=== PATIENT | female | born 2000 | race Caucasian/White ===

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

== ENCOUNTER 2018-12-11 07:22 | Day surgery (SDC) | payer BC ==
[~2018-12-11 07:22] MED LIST: BUPIVACAINE HCL/PF 0.5% (5 MG/ML) 30 ML VIAL IJ ONE; cefOXitin SODIUM 1 GM VIAL (RESTRICTED TO ID) IVPB ONE
[2018-12-11 07:37] VITALS: BMI 24.7
[2018-12-11] MEDS ORDERED: SODIUM CHLORIDE 1,000 ML IV STA (08:01)
[2018-12-11] MEDS ORDERED: ONDANSETRON 4 MG/2 ML VIAL IVPUSH ONE (08:01)
[2018-12-11] MEDS ORDERED: FAMOTIDINE 20 MG/50 ML IVPB 20 MG/50 ML MG IVPB ONE ×2 (08:01→08:23)
[2018-12-11] MEDS ORDERED: ACETAMINOPHEN 1000 MG/100 ML VIAL (NON FORMULARY) IVPB ONE ×2 (08:01→22:13)
--- NOTE | 2018-12-11 08:02 | PDOC ---
History of Present Illness - General Chief Complaint: Pain, Acute Stated Complaint: BACK PAIN Time Seen by Provider: 12/11/18 07:55 History Source: Patient Exam Limitations: No Limitations Past History - Travel Traveled outside of the country in the last 30 days: No Close contact w/someone who was outside of country & ill: No - Past Medical History Allergies/Adverse Reactions: Allergies Allergy/AdvReac Type Severity Reaction Status Date / Time No Known Allergies Allergy Verified 12/11/18 07:28 Home Medications: Ambulatory Orders Loratadine [Claritin] 10 mg PO DAILY #30 tablet 07/26/16 predniSONE [Deltasone -] 20 mg PO DAILY #5 tablet 07/26/16 Asthma: Yes (no intubations) COPD: No - Immunization History TDAP Vaccination: Yes Immunization Up to Date: Yes - Suicide/Smoking/Psychosocial Hx Smoking Status: No Smoking History: Current every day smoker Number of Cigarettes Smoked Daily: 10 Information on smoking cessation initiated: No Drug/Substance Use Hx: Yes (MARIJUANA) Substance Use Type: None Review of Systems - Review of Systems Able to Perform ROS?: Yes Comments:: 12/11/18 08:14 CONSTITUTIONAL: Absent: fever, chills, diaphoresis, generalized weakness, malaise, loss of appetite HEENT: Absent: rhinorrhea, nasal congestion, throat pain, throat swelling, difficulty swallowing, mouth swelling, ear pain, eye pain, visual Changes CARDIOVASCULAR: Absent: chest pain, loss of consciousness, palpitations, irregular heart rate, peripheral edema RESPIRATORY: Absent: cough, shortness of breath, dyspnea with exertion, orthopnea, wheezing, stridor, hemoptysis GASTROINTESTINAL: Present: abdominal pain, nausea, vomiting Absent: abdominal distension, diarrhea , constipation, melena, hematochezia GENITOURINARY: Present: dysuria, frequency, R flank pain Absent: urgency, hesitancy, hematuria , genital pain MUSCULOSKELETAL: Absent: myalgia, arthralgia, joint swelling SKIN: Absent: rash, itching, pallor NEUROLOGIC: Absent: headache, focal weakness or paresthesias, dizziness, unsteady gait, seizure, mental status changes, bladder or bowel incontinence PSYCHIATRIC: Absent: anxiety, depression, suicidal or homicidal ideation, hallucinations. Is the patient limited Azeri proficient: No *Physical Exam - Vital Signs Last Vital Signs Temp Pulse Resp BP Pulse Ox 97.5 F L 72 17 139/94 99 12/11/18 07:29 12/11/18 07:29 12/11/18 07:29 12/11/18 07:29 12/11/18 07:29 - Physical Exam Comments: 12/11/18 08:15 GENERAL: Well developed, well nourished. Awake and alert. Mild distress. HEENT: Normocephalic, atraumatic. PERRLA, EOMI. No conjunctival pallor. Sclera are non- icteric. Moist mucous membranes. Oropharynx is clear. NECK: Supple. Full ROM. No JVD. Carotid pulses 2+ and symmetric, without bruits. No thyromegaly. No lymphadenopathy. CARDIOVASCULAR: Regular rate and rhythm. No murmurs, rubs, or gallops. Distal pulses are 2+ and symmetric. PULMONARY: No evidence of respiratory distress. Lungs clear to auscultation bilaterally. No wheezing, rales or rhonchi. ABDOMINAL: TTP suprapubic area. Soft. Non-distended. No rebound or guarding. No organomegaly. Normoactive bowel sounds. MUSCULOSKELETAL Normal range of motion at all joints. No bony deformities or tenderness. (+) R CVA tenderness. EXTREMITIES: No cyanosis. No clubbing. No edema. No calf tenderness. SKIN: Warm and dry. Normal capillary refill. No rashes. No jaundice. NEUROLOGICAL: Alert, awake, appropriate. Cranial nerves 2-12 intact. No deficits to light touch and temperature in face, upper extremities and lower extremities. No motor deficits in the in face, upper extremities and lower extremities. Normoreflexic in the upper and lower extremities. Normal speech. Toes are down- going bilaterally. Gait is normal without ataxia. PSYCHIATRIC: Cooperative. Good eye contact. Appropriate mood and affect. ED Treatment Course - LABORATORY CBC & Chemistry Diagram: 12/11/18 08:20 12/11/18 08:20 Medical Decision Making - Medical Decision Making 12/11/18 08:19 The patient is a 18 y/o F with no PMH who presents to the ER for one day of flank pain and one week of dysuria. The patient states that she also has associated R sided back pain. She states she has been vomiting d/t the pain and noted streaks of blood in her vomit this morning. Denies fevers, chills, sore throat, chest pain, difficulty breathing, diarrhea, constipation. LMP 11/29/18 PShx: None SHx: Smokes 5 cigarettes a day Social drinker Marijuana use A/P: Flank pain with dysuria On exam (+) R flank pain and suprapubic tenderness DDx IBINLT: Pyelo, UTI, , Renal stone, viral illness, less likely appendicitis Basic labs, urine ordered IVF, Meds CT renal re-evaluate 12/11/18 08:56 (+) UTI, Will give one dose of Ceftriaxone now. No allergies per the patient WBC 14.4 Pain has resolved after ofirmev 12/11/18 11:21 CT noted for possible early appendicitis, Stones in the L kidney Surgery consulted; paged Dr. Fields Anticipate admission 12/11/18 12:53 Dr. Fields agrees with early appy. Will admit under Dr. Fields to Satallite Cefoxtine and maintenance fluids ordered Pt is a agreement with plan *DC/Admit/Observation/Transfer Diagnosis at time of Disposition: Appendicitis Qualifiers: Appendicitis type: acute appendicitis Acute appendicitis type: with localized peritonitis Appendicitis gangrene presence: without gangrene Appendicitis perforation presence: without perforation Appendicitis abscess presence: without abscess Qualified Code(s): K35.30 - Acute appendicitis with localized peritonitis, without perforation or gangrene - Discharge Dispostion Condition at time of disposition: Stable Decision to Admit order: Yes - Referrals - Patient Instructions - Post Discharge Activity
[2018-12-11] MEDS ORDERED: ACETAMINOPHEN INJECTION 100 ML IVPB ONE ×2 (08:22→22:15)
[2018-12-11] MEDS ORDERED: ONDANSETRON 4 MG/2 ML VIAL ONE ×2 (08:22→22:00)
[2018-12-11 08:33] LABS: HCG,QUALITATIVE URINE Negative; HYALINE CASTS 8 /lpf (0-8); PH,URINE 7.5 (5.0-8.0); URINE APPEARANCE CLOUDY; URINE BACTERIA 414.4 /hpf (NEGATIVE); URINE BILIRUBIN NEGATIVE (NEGATIVE); URINE COLOR YELLOW; URINE GLUCOSE (UA) NEGATIVE (NEGATIVE); URINE KETONE NEGATIVE (NEGATIVE); URINE LEUK ESTERASE 2+ (NEGATIVE); URINE NITRITE NEGATIVE (NEGATIVE); URINE PROTEIN 1+ (NEGATIVE); URINE RBC 14 /hpf (0-4); URINE UROBILINOGEN 0.2 mg/dL (0.2-1.0); URINE WBC 70 /hpf (0-5)
[2018-12-11] MEDS ORDERED: CEFTRIAXONE 1,000 MG in DEXTROSE 5%-WATER - 50 ML IVPB ONE (08:51)
[2018-12-11 09:01] LABS: ALBUMIN 4.1 g/dl (3.4-5.0); BILIRUBIN,TOTAL 0.7 mg/dL (0.2-1); BLOOD UREA NITROGEN 8.2 mg/dL (7-18); CALCIUM 9.6 mg/dL (8.5-10.1); CREATININE 0.7 mg/dL (0.55-1.3); POTASSIUM 4.1 mmol/L (3.5-5.1); TOT PROT 7.7 g/dl (6.4-8.2)
[2018-12-11 09:08] LABS: PROTHROMBIN TIME (PATIENT) 11.8 SEC (9.7-13.0)
[2018-12-11] MEDS ORDERED: CEFTRIAXONE 1 GM/50 ML BAG ONE (09:14)
[2018-12-11 09:37] LABS: HEMATOCRIT 43.1 % (32.4-45.2); HEMOGLOBIN 14.5 GM/dL (10.7-15.3); MCH 29.4 pg (25.7-33.7); MCHC 33.6 g/dl (32.0-36.0); MEAN CELL VOLUME 87.5 fl (80-96); MEAN PLT VOLUME 10.4 fl (7.5-11.1); RBC 4.92 M/mm3 (3.60-5.2); RDW 13.1 % (11.6-15.6); WHITE BLOOD COUNT 14.6 K/mm3 (4.0-10.0)
--- NOTE | 2018-12-11 10:01 | PDOC ---
*Physical Exam - Vital Signs Last Vital Signs Temp Pulse Resp BP Pulse Ox 97.5 F L 72 17 139/94 99 12/11/18 07:29 12/11/18 07:29 12/11/18 07:29 12/11/18 07:29 12/11/18 07:29 ED Treatment Course - LABORATORY CBC & Chemistry Diagram: 12/11/18 08:20 12/11/18 08:20 - ADDITIONAL ORDERS Additional order review: Laboratory Results 12/11/18 12/11/18 12/11/18 08:20 08:20 08:07 PT with INR 11.80 INR 1.00 Sodium 138 Potassium 4.1 Chloride 103 Carbon Dioxide 25 Anion Gap 10 BUN 8.2 Creatinine 0.7 Est GFR (CKD-EPI)AfAm 144.56 Est GFR (CKD-EPI)NonAf 124.72 Random Glucose 108 H Calcium 9.6 Total Bilirubin 0.7 AST 21 ALT 33 Alkaline Phosphatase 87 Total Protein 7.7 Albumin 4.1 Urine Color Yellow Urine Appearance Cloudy Urine pH 7.5 Ur Specific [place] 1.017 Urine Protein 1+ H Urine Glucose (UA) Negative Urine Ketones Negative Urine Blood Trace Urine Nitrite Negative Urine Bilirubin Negative Urine Urobilinogen 0.2 Ur Leukocyte Esterase 2+ H Urine WBC (Auto) 70 Urine RBC (Auto) 14 Urine Casts (Auto) 8 U Epithel Cells (Auto) 1.0 Urine Bacteria (Auto) 414.4 Urine HCG, Qual Negative 12/11/18 08:20 RBC 4.92 MCV 87.5 MCHC 33.6 RDW 13.1 Neutrophils % No Result Required. Lymphocytes % No Result Required. - Medications Given in the ED: ED Medications Discontinued Medications Generic Name Dose Route Start Last Admin Trade Name Rcq PRN Reason Stop Dose Admin Acetaminophen 1,000 mg 12/11/18 08:01 12/11/18 08:32 Ofirmev Injection - IVPB 12/11/18 08:02 1,000 mg ONCE ONE Administration Famotidine/Sodium Chloride 20 mg in 50 mls @ 100 mls/hr 12/11/18 08:01 08:56 Pepcid 20 Mg Premixed Ivpb - IVPB 12/11/18 08:30 100 mls/hr ONCE ONE Administration Sodium Chloride 1,000 mls @ 1,000 mls/hr 12/11/18 08:01 12/11/18 08:32 Normal Saline - IV 12/11/18 09:00 1,000 mls/hr ASDIR STA Administration Ceftriaxone Sodium 1,000 mg/ 50 mls @ 100 mls/hr 12/11/18 08:51 12/11/18 09: 25 Dextrose IVPB 12/11/18 09:20 100 mls/hr ONCE ONE Administration Ondansetron HCl 4 mg 12/11/18 08:01 12/11/18 08:33 Zofran Injection IVPUSH 12/11/18 08:02 4 mg ONCE ONE Administration Medical Decision Making - Medical Decision Making 12/11/18 10:00 Ms Escobar is a 18 y/o F with no PMH who presents to the ER right flank pain x 1 week. No fevers or chills 12/11/18 10:01 Laboratory Tests 12/11/18 12/11/18 08:07 08:20 WBC 14.6 H Hgb 14.5 Hct 43.1 Urine Blood Trace Urine Nitrite Negative Ur Leukocyte Esterase 2+ H Urine WBC (Auto) 70 Urine RBC (Auto) 14 Urine Bacteria (Auto) 414.4 UA demonstrates possible UTI, Ceftriaxone given CT concerning for appendicitis Will consult surgery Abx Admit 12/11/18 16:41 *DC/Admit/Observation/Transfer Diagnosis at time of Disposition: Appendicitis - Discharge Dispostion Condition at time of disposition: Stable - Referrals - Patient Instructions - Post Discharge Activity
[2018-12-11 10:55] LABS: ANISOCYTOSIS 1+; MACROCYTOSIS 0; PLATELET ESTIMATE NORMAL
[2018-12-11 11:11] LABS: PLATELET COUNT 351 K/MM3 (134-434)
[2018-12-11] MEDS ORDERED: SODIUM CHLORIDE 1,000 ML IV SCH (11:45)
[2018-12-11] MEDS ORDERED: CEFOXITIN SODIUM 1 GM in DEXTROSE 5%-WATER - 100 ML IVPB ONE (11:49)
--- NOTE | 2018-12-11 14:00 | HP ---
Admitting History and Physical - Primary Care Physician PCP: Shaquille Roman - Admission Chief Complaint: dysuria, lower abd pain, N/V History of Present Illness: 18yo F with h/o asthma (no meds for years), active smoker of cigarettes and MJ, presents with dysuria since Sunday associated with lower abdominal pain and some nausea over the weekend. The pain persisted and got worse this morning, at which time she also had vomiting, including some bloody streaks at the end, and she came to ER. Last po was yesterday, but she wasn't really hungry then. Normal BMs, last yesterday. No F/C, has had UTI in past with sexual activity. LMP 1-2 weeks ago. In ER, wbc is 14, and CT shows small left kidney stone but nothing on right, appendix with appendicolith, some fluid at tip, possible early/tip appendicitis. She is seen and examined in ER holding with father present. Pain is better after IV tylenol, but shaping machine tender. She has gotten IV fluids and antibiotics. History Source: Patient Limitations to Obtaining History: No Limitations - Past Medical History Pulmonary: Yes: Asthma (no meds) Renal/: Yes: UTI (in past, with sexual activity) ...LMP Comment: 1-2 wks ago ...: No - Past Surgical History Past Surgical History: Yes: None - Smoking History Smoking history: Current every day smoker Have you smoked in the past 12 months: Yes Aproximately how many cigarettes per day: 5 - Alcohol/Substance Use Hx Alcohol Use: Yes (social) History of Substance Use: reports: Marijuana (daily) Date of Last Use: 12/10/18 - Social History ADL: Independent Occupation: security Home Medications - Allergies Allergies/Adverse Reactions: Allergies Allergy/AdvReac Type Severity Reaction Status Date / Time No Known Allergies Allergy Verified 12/11/18 07:28 - Home Medications Home Medications: Ambulatory Orders NK [No Known Home Medication] 12/11/18 Family Disease History - Family Disease History Family Disease History: CA: Grandparent (pat GF colon CA), Other: Father (htn) Other Family History: mother's side breast CA but not mother Review of Systems - Review of Systems Constitutional: reports: Loss of Appetite (with hpi). denies: Chills, Fever Eyes: denies: Blurred Vision, Recent Change in Vision HENT: denies: Difficult Swallowing, Throat Pain Neck: denies: Swollen Glands, Tenderness Cardiovascular: denies: Chest Pain, Palpitations Respiratory: denies: Cough, SOB Gastrointestinal: reports: Abdominal Pain (with hpi), Nausea (with hpi), Vomiting (with hpi), Vomiting Blood (streaks this morning, with hpi). denies: Constipation, Diarrhea Genitourinary: reports: Burning, Dysuria Musculoskeletal: reports: Back Pain (with hpi). denies: Joint Pain, Muscle Pain Integumentary: denies: Change in Color, Rash Neurological: denies: Dizziness, Headache, Unsteady Gait Psychiatric: denies: Anxiety, Depression Physical Examination Vital Signs: Vital Signs Temperature 97.5 F L 12/11/18 07:29 Pulse Rate 86 12/11/18 11:30 Respiratory Rate 18 12/11/18 11:30 Blood Pressure 132/72 12/11/18 11:30 O2 Sat by Pulse Oximetry (%) 99 12/11/18 13:48 Constitutional: Yes: Well Nourished, No Distress, Calm Eyes: Yes: Conjunctiva Clear, EOM Intact HENT: Yes: Atraumatic, Normocephalic Neck: Yes: Supple, Trachea Midline Cardiovascular: Yes: Regular Rate and Rhythm Respiratory: Yes: Regular, CTA Bilaterally. No: Wheezes Gastrointestinal: Yes: Soft, Hernia (tiny umbilical defect palpable), Hypoactive Bowel Sounds, Tenderness (RLQ mild, no michelle/guard, mild suprapubic). No: Distention, Tenderness, Epigastrium, Tenderness, Rebound ...Rectal Exam: Yes: Deferred Renal/: Yes: CVA Tenderness - Right (mild). No: CVA Tenderness - Left Musculoskeletal: No: Back Pain (no direct tenderness), Joint Stiffness, Joint Swelling Extremities: No: Cool, Cyanosis Edema: No Peripheral Pulses WNL: Yes Integumentary: Yes: Body Piercing (right eyebrow, tongue), Tattoos. No: Jaundice, Rash Neurological: Yes: Alert, Oriented Psychiatric: Yes: Alert, Oriented Labs: CBC, BMP 12/11/18 08:20 12/11/18 08:20 CMP Sodium 138 mmol/L (136-145) 12/11/18 08:20 Potassium 4.1 mmol/L (3.5-5.1) 12/11/18 08:20 Chloride 103 mmol/L (98-107) 12/11/18 08:20 Carbon Dioxide 25 mmol/L (21-32) 12/11/18 08:20 Anion Gap 10 MMOL/L (8-16) 12/11/18 08:20 BUN 8.2 mg/dL (7-18) 12/11/18 08:20 Creatinine 0.7 mg/dL (0.55-1.3) 12/11/18 08:20 Est GFR (CKD-EPI)AfAm 144.56 12/11/18 08:20 Est GFR (CKD-EPI)NonAf 124.72 12/11/18 08:20 Random Glucose 108 mg/dL (74-106) H 12/11/18 08:20 Calcium 9.6 mg/dL (8.5-10.1) 12/11/18 08:20 Total Bilirubin 0.7 mg/dL (0.2-1) 12/11/18 08:20 AST 21 U/L (15-37) 12/11/18 08:20 ALT 33 U/L (13-61) 12/11/18 08:20 Alkaline Phosphatase 87 U/L (45-117) 12/11/18 08:20 Total Protein 7.7 g/dl (6.4-8.2) 12/11/18 08:20 Albumin 4.1 g/dl (3.4-5.0) 12/11/18 08:20 INR, PTT INR 1.00 (0.83-1.09) 12/11/18 08:20 Urine Test Results Urine Color Yellow 12/11/18 08:07 Urine Appearance Cloudy 12/11/18 08:07 Urine pH 7.5 (5.0-8.0) 12/11/18 08:07 Ur Specific [place] 1.017 (1.010-1.035) 12/11/18 08:07 Urine Protein 1+ (NEGATIVE) H 12/11/18 08:07 Urine Glucose (UA) Negative (NEGATIVE) 12/11/18 08:07 Urine Ketones Negative (NEGATIVE) 12/11/18 08:07 Urine Blood Trace (NEGATIVE) 12/11/18 08:07 Urine Nitrite Negative (NEGATIVE) 12/11/18 08:07 Urine Bilirubin Negative (NEGATIVE) 12/11/18 08:07 Ur Leukocyte Esterase 2+ (NEGATIVE) H 12/11/18 08:07 UA positive Imaging - Results Cat Scan: Report Reviewed, Image Reviewed (images reviewed - appendix with appendicolith, little fluid by tip, no free air or abscess) Problem List - Problems (1) Acute appendicitis with localized peritonitis, without perforation, abscess , or gangrene Assessment/Plan: admit 23H/satellite to surgery NPO/IVF until postop IV antibiotics periop pain meds prn, nonnarcotics first line DVT prophylaxis Discussed with patient risks, benefits and alternatives of laparoscopic possible open appendectomy, including but not limited to bleeding, infection, injury to adjacent structures, intestinal leak or injury, intraabdominal abscess , incisional hernia, need for further procedures; alternatives include antibiotics, delayed or no surgery - risks of this include failure of nonoperative therapy, perforation, sepsis, recurrence. Patient desires to proceed with operation - will take to OR for above. Informed consent signed for same. Code(s): K35.30 - ACUTE APPENDICITIS WITH LOC PERITONITIS, W/O PERF OR GANGR (2) Dysuria Code(s): R30.0 - DYSURIA (3) Suprapubic pain Code(s): R10.2 - PELVIC AND PERINEAL PAIN (4) Cystitis Assessment/Plan: urine cx pending got ceftriaxone in ER, cefoxitin for appendix will complete course of bactrim postop for UTI Code(s): N30.90 - CYSTITIS, UNSPECIFIED WITHOUT HEMATURIA (5) Nausea and vomiting Code(s): R11.2 - NAUSEA WITH VOMITING, UNSPECIFIED Qualifiers: Vomiting type: unspecified Vomiting Intractability: non-intractable Qualified Code(s): R11.2 - Nausea with vomiting, unspecified
[2018-12-11] MEDS ORDERED: LACTATED RINGERS SOLUTION 1,000 ML IV SCH ×3 (14:15→22:30)
[2018-12-11] MEDS ORDERED: BENZOIN TINCTURE SWABSTICK TP ONE ×2 (14:45→21:49)
[2018-12-11] MEDS ORDERED: CEFOXITIN SODIUM 2 GM IVPB ONE (20:14)
[2018-12-11] MEDS ORDERED: PROMETHAZINE HCL 25 MG/1 ML VIAL IVPUSH PRN (20:22)
[2018-12-11] MEDS ORDERED: oxyCODONE HCL 5 MG TABLET PO PRN ×3 (20:22→22:30)
[2018-12-11] MEDS ORDERED: ONDANSETRON 4 MG/2 ML VIAL IVPUSH PRN ×2 (20:22→22:30)
[2018-12-11] MEDS ORDERED: SUCCINYLCHOLINE CHLORIDE 200 MG/10 ML SYRINGE ONE (20:50)
[2018-12-11] MEDS ORDERED: ROCURONIUM BROMIDE 50 MG/5 ML VIAL ONE (20:50)
[2018-12-11] MEDS ORDERED: PROPOFOL 20 ML ONE (20:50)
[2018-12-11] MEDS ORDERED: fentaNYL CITRATE 250 MCG/5 ML VIAL ONE (20:51)
[2018-12-11] MEDS ORDERED: cefOXitin SODIUM 1 GM VIAL (RESTRICTED TO ID) IVPB ONE (21:16)
[2018-12-11] MEDS ORDERED: GLYCOPYRROLATE 0.2 MG/1 ML VIAL ONE (22:00)
[2018-12-11] MEDS ORDERED: KETOROLAC TROMETHAMINE 30 MG/1 ML VIAL ONE (22:00)
[2018-12-11] MEDS ORDERED: BUPIVACAINE HCL/PF 0.5% (5 MG/ML) 30 ML VIAL IJ ONE (22:00)
[2018-12-11] MEDS ORDERED: DEXAMETHASONE SOD PHOSPHATE 4 MG/1 ML VIAL ONE (22:00)
[2018-12-11] MEDS ORDERED: NEOSTIGMINE METHYLSULFATE 0.5 MG/1 ML - 10 ML MDV ONE (22:01)
[2018-12-11] MEDS: ACETAMINOPHEN 1000 MG/100 ML VIAL (NON FORMULARY) IVPB ONE (22:20)
--- NOTE | 2018-12-11 22:22 | OP ---
Operative Note - Note: Operative Date: 12/11/18 Pre-Operative Diagnosis: acute appendicitis Operation: laparoscopic appendectomy Findings: yellow fluid in pelvis, suctioned; proximal appendix mildly enlarged Post-Operative Diagnosis: Same as Pre-op Surgeon: Jeffy Fields Anesthesiologist/TOOLING MECHANIC: Pb Frausto Anesthesia: General, Local (10ml 0.5% marcaine) Specimens Removed: appendix to pathology Estimated Blood Loss (mls): 5 Drains & Tubes with Location: Lucas out at end of case Drains, Volume Out (mls): 350 (UOP) Fluid Volume Replaced (mls): 1,000 (crystalloid) Operative Report Dictated: Yes
[2018-12-12] MEDS: IBUPROFEN 600 MG TABLET (FP) PO SCH ×3 (02:01→15:01)
[2018-12-12] MEDS ORDERED: IBUPROFEN 600 MG TABLET (FP) PO SCH (03:00)
[2018-12-12] MEDS: ACETAMINOPHEN 325 MG TABLET (FP) PO SCH ×2 (05:16→12:00)
[2018-12-12] MEDS ORDERED: ACETAMINOPHEN 325 MG TABLET (FP) PO SCH (06:00)
[2018-12-12] MEDS: ACETAMINOPHEN 1000 MG/100 ML VIAL (NON FORMULARY) IVPB ONE (06:59)
[2018-12-12] MEDS ORDERED: SULFAMETHOXAZOLE/TRIMETHOPRIM 800MG/160MG D.S. TABLET PO SCH ×2 (10:00)
[2018-12-12] MEDS ORDERED: LACTOBACILLUS ACIDOPHILUS 1 TABLET PO SCH ×2 (10:00)
--- NOTE | 2018-12-12 12:53 | PN ---
Progress Note, Physician Chief Complaint: s/p lap appendectomy under general anesthesia History of Present Illness: post op day one - Current Medication List Current Medications: Active Medications Acetaminophen (Tylenol -) 650 mg PO Q6H [facility] Last Admin: 12/12/18 12:00 Dose: 650 mg Lactated Ringer's (Lactated Ringers Solution) 1,000 mls @ 100 mls/hr IV ASDIR [facility] Last Admin: 12/12/18 06:59 Dose: Not Given Ibuprofen (Motrin -) 600 mg PO Q6H [facility] Last Admin: 12/12/18 10:22 Dose: 600 mg Lactobacillus Acidophilus (Bacid -) 1 tab PO DAILY [facility] Last Admin: 12/12/18 10:24 Dose: 1 tab Ondansetron HCl (Zofran Injection) 4 mg IVPUSH Q6H PRN PRN Reason: NAUSEA AND/OR VOMITING Trimethoprim/Sulfamethoxazole (Bactrim Ds -) 1 each PO BID [facility] Last Admin: 12/12/18 10:22 Dose: 1 each - Objective Vital Signs: Vital Signs Temperature 98.8 F 12/12/18 04:00 Pulse Rate 64 12/12/18 04:00 Respiratory Rate 18 12/12/18 04:00 Blood Pressure 118/85 12/12/18 04:00 O2 Sat by Pulse Oximetry (%) 100 12/12/18 04:55 Constitutional: Yes: Well Nourished Cardiovascular: Yes: WNL Respiratory: Yes: WNL Gastrointestinal: Yes: WNL Labs: CBC, BMP 12/11/18 08:20 12/11/18 08:20 INR, PTT INR 1.00 (0.83-1.09) 12/11/18 08:20 Assessment/Plan no adverse effect of anesthetic, pain controlled, dept of anesthesia will sign off care at this time
[2018-12-12 13:35] VITALS: BP 123/72; PULSE 75; TEMP 98.3
--- NOTE | 2018-12-12 15:45 | DS ---
Physical Examination Vital Signs: Vital Signs Temperature 98.3 F 12/12/18 13:33 Pulse Rate 75 12/12/18 13:33 Respiratory Rate 20 12/12/18 13:33 Blood Pressure 123/72 12/12/18 13:33 O2 Sat by Pulse Oximetry (%) 100 12/12/18 09:00 Findings/Remarks: POD1 s/p lap appy for acute appendicitis. Seen and examined in bed, father present. Pt has ambulated, tolerating diet, voiding well. Pain managed well with alternating tylenol and ibuprofen today. Passing gas, no BM yet. Feeling better. Ready to go home. Constitutional: Yes: Well Nourished, No Distress, Calm Eyes: Yes: Conjunctiva Clear, EOM Intact HENT: Yes: Atraumatic, Normocephalic Neck: Yes: Supple, Trachea Midline Cardiovascular: Yes: Regular Rate and Rhythm Respiratory: Yes: Regular, CTA Bilaterally. No: Wheezes Gastrointestinal: Yes: Normal Bowel Sounds, Soft, Tenderness (appropriate incisional, mostly umbilical). No: Distention, Tenderness, Rebound Extremities: No: Cool, Cyanosis Integumentary: Yes: Body Piercing (right eyebrow, tongue), Incision (x3 dressed) , Tattoos. No: Jaundice, Rash Wound/Incision: Yes: Steri Strips (under dressings), Dressing Dry and Intact ( x3 - small spot of strikethrough on umbilical site, dried). No: Dressing Removed Neurological: Yes: Alert, Oriented Labs: Microbiology 12/11/18 08:07 Urine Culture - Preliminary Urine - Urine Clean Catch Staphylococcus Species >100K Staph in urine Discharge Summary Reason For Visit: APPENDICITIS Current Active Problems Acute appendicitis with localized peritonitis, without perforation, abscess, or gangrene (Acute) Cystitis (Acute) Dysuria (Acute) Nausea and vomiting (Acute) Suprapubic pain (Acute) Procedures: Principal: laparoscopic appendectomy Hospital Course: 18yo F smoker (tobacco and MJ) with h/o asthma (no meds in years), presented to ER with 2d of suprapubic pain, dysuria, ultimately associated with N/V as well. Workup revealed wbc 14, urinary tract infection (culture grew Staph species > 100K), and CT showed likely acute appendicitis with appendicolith(s). She was hydrated, given perioperative Cefoxitin, and taken for uneventful laparoscopic appendectomy. Postoperatively, she has tolerated diet, is ambulating and voiding without dysuria, and pain is managed well with alternating nonnarcotics. 3-day course of Bactrim DS bid was started in the hospital, and will be Rx for her to complete at home. She is discharged with lifting restrictions to f/u with her PMD soon and surgery in 2 weeks. She is advised to use a probiotic and/or yogurt daily while completing the antibiotics. She was also counseled regarding smoking cessation, and the need to refrain from nicotine throughout the healing process. Time spent on discharge: 35 minutes Condition: Good - Instructions Diet, Activity, Other Instructions: Postoperative instructions: You had a laparoscopic appendectomy on 12/11/[address] Jeffy Fields of [facility]. Activity: Resume your usual activities gradually, but no heavy exertion or lifting more than 10-15 pounds for 1 month. Remove dressings 48 hours after surgery; sticky tapes underneath will fall off by themselves. You may shower daily starting then, just pat the incision areas dry. No bath or swimming until skin incisions have healed. Eat lightly at first, but advance to your usual diet as tolerated. Pain: For pain, you may use and alternate Tylenol (acetaminophen) 1-2 pills and/ or ibuprofen 200 mg (1-3 pills) every 6 hours each as needed; this means that you can take one OR the other at 3-hour intervals. Do not take more than 4000mg of acetaminophen in a day. Take medications as prescribed or indicated on the labeling. Follow-up: Call Dr. Fields's office at [phone] to make your postop appointment (Sunday in approximately 2 weeks after surgery). Clinic is held in the [facility] on the first floor of [facility]. Call the office if you have: * increasing pain not responsive to pain medication * fever of 101F or higher * vomiting * unusual or increasing bleeding or drainage from wounds * increasing redness or swelling at wound sites Also, see your primary medical doctor within 1-2 weeks. You were also diagnosed with a urinary tract infection (Staph species). Make sure you get and take all your antibiotics as prescribed (Bactrim twice daily for 2.5 more days). Eat yogurt and/or take a probiotic daily while finishing the antibiotics and for a few days after. Follow up with your primary medical doctor if urinary symptoms persist. Referrals: Shaquille Roman MD [Primary Care Provider] - Disposition: HOME - Home Medications Comprehensive Discharge Medication List: Ambulatory Orders Acetaminophen [Tylenol .Regular Strength -] 650 mg PO Q6H tablet 12/12/18 Ibuprofen [Motrin -] 600 mg PO Q6H tablet 12/12/18 Lactobacillus Acidophilus [Bacid -] 1 tab PO DAILY tab 12/12/18 Sulfamethoxazole/Trimethoprim [Bactrim DS -] 1 each PO BID #5 tablet 12/12/18
--- NOTE | 2018-12-16 17:47 | PATH ---
Surgical Pathology Report Patient Name: MARIA ELENA AGUAYO [facility]. Rec. #: [id number] /Age/Gender: 2000 (Age: 18) / F Account: [id number] Location: AMBULATORY SURG Taken: 12/11/2018 Received: 12/12/2018 Reported: 12/16/2018 Physicians: Jeffy Fields M.D. Specimen(s) Received APPENDIX Clinical History Acute appendicitis Final Diagnosis APPENDIX, LAPAROSCOPIC APPENDECTOMY: FOCAL MILD ACUTE APPENDICITIS. Electronically Signed Anahi Martinez M.D. Gross Description Received in formalin, labeled "appendix," is a 3.5 cm. in length vermiform appendix with a stapled margin of resection and moderate attached fat. The serosa is finney-lan and smooth. Sectioning reveals a focally hemorrhagic lumen containing brown fecal material. The wall of the appendix averages 0.1 cm. in thickness. Sales Teacher sections are submitted in one cassette. /12/12/2018 saudi12/12/2018
--- NOTE | 2018-12-25 09:43 | OP ---
DATE OF OPERATION: 12/11/2018 PREOPERATIVE DIAGNOSIS: Acute appendicitis. POSTOPERATIVE DIAGNOSIS: Acute appendicitis. PROCEDURE PERFORMED: Laparoscopic appendectomy. SURGEON: Jeffy Fields M.D. ANESTHESIA: General endotracheal and local, 10 mL of 0.5% Marcaine. ESTIMATED BLOOD LOSS: 5 mL. FLUIDS: One liter of crystalloid. URINE OUTPUT: 350 mL. DRAINS: Lucas was removed at the end of the case. SPECIMEN: Appendix to Pathology. FINDINGS: Some yellow fluid in the pelvis, which was suctioned. The proximal appendix was mildly enlarged. DISPOSITION: Stable and extubated to PACU. INDICATIONS FOR PROCEDURE: The patient is a 18-year-old female with a history of asthma, not on medications, but an active smoker of cigarettes and marijuana, who presented with dysuria to the emergency room with lower abdominal pain and nausea, including some vomiting right before coming to the emergency room. In the emergency room, her white count was 14,[address] scan showed an appendix with an appendicolith, some fluid at the tip and possible early/tip appendicitis. She was somewhat tender in the right lower quadrant. Discussion was held with the patient regarding risks, benefits and alternatives of laparoscopic, possible open appendectomy, including but not limited to bleeding, infection, injury to adjacent structures, intestinal leak or injury, intra-abdominal abscess, incisional hernia, need for further procedures and alternatives, inclusive of delayed or no surgery , with consequent risks of failure of nonoperative therapy, perforation, sepsis and recurrence. The patient did desire to proceed with the operation, signed informed consent for the same, and is now brought to the operating room for this procedure. OPERATIVE TECHNIQUE: The patient was brought to the operating room and laid supine on the operating table. Sequential compression devices were applied to bilateral lower extremities, and cefoxitin was given as preoperative antibiotic. After induction and intubation by Anesthesia, a Lucas catheter was placed in the patient's bladder, which was removed at the end of the case. Her lower abdomen was prepped and draped in sterile fashion. A small infraumbilical incision was made with a scalpel and carried into the subcutaneous tissues with electrocautery, until the abdominal wall fascia was identified, scored and elevated with Marianela clamps. The peritoneum was entered bluntly with the tip of a clamp, and a fingertip inserted to ensure entry into the abdominal cavity and the absence of any underlying adhesions. A stay suture of 0 Vicryl was placed in a [id number] fashion for later closure, and a Jaimee trocar introduced directly into the abdominal cavity and secured in place with the balloon. The abdomen was insufflated with carbon dioxide, and she was placed in Trendelenburg position with the right side planed somewhat upward. The laparoscope was inserted to inspect the abdominal cavity. There was some yellow fluid noted in the pelvis. Two additional 5-mm ports were placed under direct vision in the left lower quadrant and suprapubic areas, and the suction production hardener was used to suction the yellow fluid from the pelvis. The camera was moved to the left lower quadrant port. Two graspers were used to manipulate the small bowel away from the pelvis and identify the appendix and the cecum. The appendix was grasped and elevated. The proximal appendix looked mildly enlarged. A window was created at the base of the appendix with a [place] dissector, such that the appendiceal base could be transected with the Endo CATHERINE stapler. The staple line was noted to be hemostatic. After that, the mesoappendix was also transected with an additional load of the Endo CATHERINE stapler. Again, the staple line was hemostatic. The area was suctioned clear of fluid. The appendix was placed in an Endo Catch bag and drawn up into the Jaimee trocar. The suprapubic port was removed under direct vision. The Jaimee and appendix were removed en bloc under direct vision, and the left lower quadrant port and camera also removed. The abdomen was exsufflated of carbon dioxide. The patient was returned to the neutral position. The specimen was passed off for pathology. The stay suture at the umbilicus was tied to close the fascia there. Hemostasis was achieved in the ports sites where needed with electrocautery. Local anesthetic was infiltrated into all 3 port sites. The skin was closed with 4-0 Vicryl subcuticular sutures, with a running at the umbilicus. Benzoin and Steri-Strips were applied over each incision, and dressings of gauze and Tegaderm placed over these. The Lucas catheter was removed from the patient's bladder. Counts were correct at the end of the procedure. The patient was then awakened and extubated by Anesthesia, moved back to a stretcher and taken to the recovery room in stable condition, having tolerated the procedure well. Jeffy Fields M.D. [id number] MTDLevar
== END 2018-12-12 16:47 | disposition home or self-care (01) ==
LOC: JER 07:22 → JASUSAT 12:20 → J7W 16:47 → JASUSAT 12-12 16:47
PROVIDERS: ATTEND Surgery
PROC: 0DTJ4ZZ Resection of Appendix, Percutaneous Endoscopic Approach (ICD-10-PCS; principal; 2018-12-11 13:30)
DX: K35.80 Unspecified acute appendicitis (principal)
CPT/HCPCS: 36415; 74176-TC; 80053; 81003; 84703; 85025; 85610; 86850; 86900; 86901; 87086; 87186; 88304-TC; 94760; 99285-25; J0131; J7030

== ENCOUNTER 2019-01-07 15:20 | Inpatient (IN) | payer BC ==
--- NOTE | 2019-01-07 16:33 | PDOC ---
History of Present Illness - General Chief Complaint: Pain Stated Complaint: PAIN Time Seen by Provider: 01/07/19 16:10 - History of Present Illness Initial Comments: 01/07/19 16:18 CHIEF COMPLAINT: sacral pain HISTORY OF PRESENT ILLNESS: 18 yo F with no significant PMH presents to fast track w/ pain to sacrum. Patient denies any trauma, fall, or injury to her tailbone and associates her pain with "my couch having bad springs." She states that she was sitting on her couch for a long time on Sunday and since then the pain to her sacrum has worsened and she can no longer sit without significant pain. Denies any urinary symptoms, constipation, rectal bleeding, or perirectal abscess. No recent travel or sick contacts. PAST MEDICAL HISTORY: Denies past medical history FAMILY HISTORY: Denies SOCIAL HISTORY: Denies tobacco, alcohol, illicit drug use. SURGICAL HISTORY: Denies ALLERGIES: No known drug allergies REVIEW OF SYSTEMS General/Constitutional: Denies fever or chills. Denies weakness, weight change. HEENT: Denies change in vision. Denies ear pain or discharge. Denies sore throat. Cardiovascular: Denies chest pain or shortness of breath. Respiratory: Denies cough, wheezing, or hemoptysis. Gastrointestinal: Denies nausea, vomiting, diarrhea or constipation. Denies rectal bleeding. Genitourinary: Denies dysuria, frequency, or change in urination. Musculoskeletal: Pain to sacrum. Skin: Denies rash or easy bruising. PHYSICAL EXAM General Appearance: Well-appearing, appropriately dressed. No apparent distress , no intoxication. HEENT: EOMI, PERRLA, normal ENT inspection, normal voice, TMs normal, pharynx normal. No conjunctival pallor. No photophobia, scleral icterus. Neck: Supple. Trachea midline. No tenderness, rigidity, carotid bruit, stridor , lymphadenopathy, or thyromegaly. Respiratory/Chest: Lungs CTAB. No shortness of breath, chest tenderness, respiratory distress, accessory muscle use. No crackles, rales, rhonchi, stridor , wheezing, dullness Cardiovascular: RRR. S1, S2. No JVD, murmur, bradycardia, tachycardia. Vascular Pulses: Dorsalis-Pedis (R): 2+, Dorsalis-Pedis (L): 2+ Gastrointestinal/Abdominal: Normal bowel sounds. Abdomen soft, non-distended. No tenderness or rebound tenderness. No organomegaly, pulsatile mass, guarding , hernia, hepatomegaly, splenomegaly. Musculoskeletal/Extremities: Marked tenderness over sacrum, no perirectal abscess, erythema, or swelling appreciated. Normal inspection. FROM of all extremities, normal capillary refill. Pelvis Stable. No CVA tenderness. No tenderness to extremities, pedal edema, swelling, erythema or deformity. Integumentary: Appropriate color, dry, warm. No cyanosis, erythema, jaundice or rash Neurologic: production solderer II-XII intact. Fully oriented, alert. Appropriate mood/affect. Motor strength 5/5. No appreciable EOM palsy, facial droop or sensory deficit. Past History - Past Medical History Allergies/Adverse Reactions: Allergies Allergy/AdvReac Type Severity Reaction Status Date / Time No Known Allergies Allergy Verified 01/07/19 15:28 Home Medications: Ambulatory Orders Acetaminophen [Tylenol .Regular Strength -] 650 mg PO Q6H tablet 12/12/18 Ibuprofen [Motrin -] 600 mg PO Q6H tablet 12/12/18 Lactobacillus Acidophilus [Bacid -] 1 tab PO DAILY tab 12/12/18 Sulfamethoxazole/Trimethoprim [Bactrim DS -] 1 each PO BID #5 tablet 12/12/18 Asthma: Yes (no intubations) COPD: No - Immunization History TDAP Vaccination: Yes Immunization Up to Date: Yes - Suicide/Smoking/Psychosocial Hx Smoking Status: No Smoking History: Never smoked Have you smoked in the past 12 months: Yes Number of Cigarettes Smoked Daily: 5 Hx Alcohol Use: No Drug/Substance Use Hx: No Substance Use Type: None *Physical Exam - Vital Signs Last Vital Signs Temp Pulse Resp BP Pulse Ox 98.5 F 85 18 98/51 L 99 01/07/19 15:28 01/07/19 15:28 01/07/19 15:28 01/07/19 15:28 01/07/19 15:28 Medical Decision Making - Medical Decision Making 01/07/19 16:33 18 yo F with no significant PMH presents to fast track w/ pain to sacrum. -UA, upreg -lumbar/sacral CT 01/07/19 19:06 CT shows thick walled fluid structure suggestive of perirectal abscess vs infected cyst vs neoplasm. Will admit for further workup. Discussed case with attending MD Gutierrez and lost charge card clerk Mary. Patient transferred to main ED. *DC/Admit/Observation/Transfer Diagnosis at time of Disposition: Allie-rectal abscess - Referrals Referrals: Shaquille Roman MD [Primary Care Provider] - - Patient Instructions - Post Discharge Activity
[2019-01-07 16:38] LABS: HYALINE CASTS 1 /lpf (0-8); PH,URINE 5.5 (5.0-8.0); URINE APPEARANCE CLOUDY; URINE BACTERIA 422.2 /hpf (NEGATIVE); URINE BILIRUBIN NEGATIVE (NEGATIVE); URINE COLOR YELLOW; URINE GLUCOSE (UA) NEGATIVE (NEGATIVE); URINE KETONE NEGATIVE (NEGATIVE); URINE LEUK ESTERASE 1+ (NEGATIVE); URINE NITRITE NEGATIVE (NEGATIVE); URINE PROTEIN NEGATIVE (NEGATIVE); URINE RBC 3 /hpf (0-4); URINE UROBILINOGEN 0.2 mg/dL (0.2-1.0); URINE WBC 11 /hpf (0-5)
--- NOTE | 2019-01-07 19:56 | PDOC ---
*Physical Exam - Vital Signs Last Vital Signs Temp Pulse Resp BP Pulse Ox 98.5 F 85 18 98/51 L 99 01/07/19 15:28 01/07/19 15:28 01/07/19 15:28 01/07/19 15:28 01/07/19 15:28 ED Treatment Course - LABORATORY CBC & Chemistry Diagram: 01/07/19 21:45 01/07/19 21:45 - ADDITIONAL ORDERS Additional order review: Laboratory Results 01/07/19 01/07/19 16:15 16:15 Urine Color Yellow Urine Appearance Cloudy Urine pH 5.5 D Ur Specific [place] 1.021 Urine Protein Negative Urine Glucose (UA) Negative Urine Ketones Negative Urine Blood Trace Urine Nitrite Negative Urine Bilirubin Negative Urine Urobilinogen 0.2 Ur Leukocyte Esterase 1+ H Urine WBC (Auto) 11 Urine RBC (Auto) 3 Urine Casts (Auto) 1 U Epithel Cells (Auto) 10.0 Urine Bacteria (Auto) 422.2 Urine HCG, Qual Negative - RADIOLOGY Radiology Studies Ordered: Category Date Time Status LUMBAR SPINE MRI W/O CONTRAST [MRI] Stat MRI 01/07/19 19:12 Ordered Radiograph Interpretation: Lumbar MRI THIS IS A PRELIMINARY REPORT FROM [facility] DATE OF SERVICE: 2019-01-07 20:02:37 IMAGES: [id number] EXAM: MRI LUMBAR SPINE WITHOUT CONTRAST: REASON FOR EXAM: Midline pain evaluate for abscess COMPARISON: none FINDINGS: Exam is limited due to motion with several images slightly degraded. Lumbar alignment is normal. The intervertebral disc are hydrated. Vertebral body heights maintained without fracture or subluxation. There is no osseous lesion. Prevertebral and posterior paraspinal soft tissues are intact and without abnormal signal. There is no abnormal fluid collection or abscess. Psoas muscles are symmetric and intact. Bilateral kidneys are unremarkable without hydronephrosis. There is no evidence of AAA or retroperitoneal hemorrhage. Conus medullaris is unremarkable and terminates at L1. There is no evidence of arachnoiditis.. No HNP, central canal stenosis, or neural foraminal stenosis. IMPRESSION: No evidence of fracture, subluxation, spinal stenosis, abscess. THIS DOCUMENT HAS BEEN ELECTRONICALLY SIGNED Chani Ann D.O. 01/07/2019 21:03 EST Pelvic MRI THIS IS A PRELIMINARY REPORT FROM [facility] DATE OF SERVICE: 2019-01-07 22:04:54 IMAGES: 191 EXAM: MRI PELVIS WITHOUT CONTRAST 2.2 x 1.8 x 1.6 cm fluid focus in upper gluteal cleft subcutaneous tissues, suspicious for intergluteal pilonidal sinus. Nearby subcutaneous edema lower back reaches level of coccyx, with questionable periosteal reaction secondary to the overlying soft tissue inflammation. No obvious marrow signal abnormalities in sacrum or coccyx, but exam substantially limited by motion artifact. Normal uterus and bilateral ovaries. Small physiologic free fluid right adnexa. THIS DOCUMENT HAS BEEN ELECTRONICALLY SIGNED Cristina Tirado M.D. 01/08/2019 02:28 EST Medical Decision Making - Medical Decision Making 18 y/o female upgraded from fast track for possible perirectal abscess noted on CT. MRI ordered, which revealed possible pilonidal tract. No skin breakdown noted on exam. Pain partially controlled with IV Tylenol. Will admit pt for surgical evaluation. Made NPO. Ordered LR maintenance fluids. Discussed MRI results and plan to admit for surgical evaluation with pt, who expressed verbal agreement. 01/08/19 03:[address] Tele[address] discussion with resident Dr. Plunkett. Verbally appraised of the pts HPI, ED course, and current plan of management. Will admit pt to med/surg for attending Dr. Guillen. *DC/Admit/Observation/Transfer Diagnosis at time of Disposition: Allie-rectal abscess - Discharge Dispostion Condition at time of disposition: Stable Decision to Admit order: Yes - Referrals - Patient Instructions - Post Discharge Activity
--- NOTE | 2019-01-07 21:25 | PDOC ---
Documentation entered by Binu Flores SCRIBE, acting as scribe for Marie Gutierrez MD. Marie Gutierrez MD: This documentation has been prepared by the Mark quijano Joel, SCRIBE, under my direction and personally reviewed by me in its entirety. I confirm that the documentation accurately reflects all work, treatment, procedures, and medical decision making performed by me. Attending Attestation - Resident Resident Name: Dada Lambert - ED Attending Attestation I have performed the following: I have examined & evaluated the patient, The case was reviewed & discussed with the resident, I agree w/resident's findings & plan, Exceptions are as noted - HPI HPI: 01/07/19 20:24 this 18 yo female was initially seen in fast track and then sent to the main ED for further evaluation. The pt had c/o sacrum pain .She denies any recent trauma The patient is a 18 year old female with no significant PMH of who presents to the emergency department for evaluation of sacral pain. The patient denies any recent trauma or falls. She denies recent travel or sick contacts. The patient denies chest pain, shortness of breath, headache and dizziness. Denies fever, chills, nausea, vomit, diarrhea and constipation. Denies dysuria, frequency, urgency and hematuria. Allergies: NKDA Past surgical history: None reported. Social history: No reported cigarette, alcohol, or drug use. PCP: Dr. Roman - Physicial Exam PE: 01/07/19 20:28 18 yo female presented to the ER with complaint of "tail bone" pain head ncat eyes candis eomi neck no midline cervical vertebral tenderness lungs cta b/l cvs [id number] abd nontender ext no edema ++ right buttocks tenderness near gluteal cleft ,no obvious fluctuance or erythema skin warm and dry neuro axox3,ambulatory 01/07/19 23:23 01/08/19 02:28 - Medical Decision Making 01/07/19 20:34 CAT scan of the lumbar spine today showed a 2.3 cm x 2.2 cm thick walled fluid structure abutting the posterior borderof the lower sacrum/upper coccyx at the level of the upper most aspect of the gluteal cleft previously on 12/11/2018 this structure only measured 0.9 cm x 0.9 cm 01/08/19 02:29 awaiting the pelvic MRI reading,pt given pain meds 01/08/19 02:30 s/o Dr Bob
[2019-01-07 21:53] LABS: BASO % 0.5 % (0-2.0); EOS % 0.2 % (0-4.5); HEMATOCRIT 40.3 % (32.4-45.2); HEMOGLOBIN 13.5 GM/dL (10.7-15.3); LYMPH % 22.6 % (8-40); MCH 29.2 pg (25.7-33.7); MCHC 33.4 g/dl (32.0-36.0); MEAN CELL VOLUME 87.3 fl (80-96); MEAN PLT VOLUME 9.4 fl (7.5-11.1); MONO % 4.6 % (3.8-10.2); NEUT % 72.1 % (42.8-82.8); PLATELET COUNT 258 K/MM3 (134-434); RBC 4.62 M/mm3 (3.60-5.2); RDW 12.7 % (11.6-15.6); WHITE BLOOD COUNT 11.4 K/mm3 (4.0-10.0)
[2019-01-07 22:21] LABS: BILIRUBIN,TOTAL 0.6 mg/dL (0.2-1); BLOOD UREA NITROGEN 8.1 mg/dL (7-18); CALCIUM 9.4 mg/dL (8.5-10.1); CREATININE 0.7 mg/dL (0.55-1.3); POTASSIUM 3.9 mmol/L (3.5-5.1); TOT PROT 7.4 g/dl (6.4-8.2)
[2019-01-08] MEDS ORDERED: ACETAMINOPHEN 1000 MG/100 ML VIAL (NON FORMULARY) IVPB ONE ×3 (00:18→20:46)
[2019-01-08] MEDS ORDERED: ACETAMINOPHEN INJECTION 100 ML IVPB ONE ×2 (01:05→20:05)
--- NOTE | 2019-01-08 03:02 | PN ---
Teaching Attending Note Name of Resident: Esme Briones ATTENDING PHYSICIAN STATEMENT I saw and evaluated the patient. I reviewed the resident's note and discussed the case with the resident. I agree with the resident's findings and plan as documented. SUBJECTIVE: Patient is a 18 year old woman with PMH of Asthma (not on medication), Tobacco and Marijuana use who presents to the ER pain in the sacrum. Patient denies any trauma, fall, or injury to her tailbone and associates her pain with "my couch having bad springs." She states that she was sitting on her couch for a long time on Sunday and since then the pain to her sacrum has worsened and she can no longer sit without significant pain. Denies any urinary symptoms, constipation, rectal bleeding, or perirectal abscess. Had laparoscopic appendectomy on 12/11/18 and was also treated for UTI at that time - urine culture grew Staphylococcus saprophyticus - was discharged on 12/12/18 on oral Bactrim. LMP was 2 weeks ago. OBJECTIVE: Alert Vital Signs Period Temp Pulse Resp BP Sys/Angel Pulse Ox Last 24 Hr 98.5 F 85 18 98/51 99 HEENT: No Jaundice, eye redness or discharge, PERRLA, EOMI. Normocephalic, atraumatic. External ears are normal and hearing is grossly intact. No nasal discharge. Neck: Supple, nontender. No palpable adenopathy or thyromegaly. No JVD Chest: Good effort. Clear to auscultation and percussion. Heart: Regular. No S3, rub or murmur Abdomen: Not distended, soft, nontender and no HSM. No rebound or guarding. Normal bowel sounds. Ext: Peripheral pulses intact. No leg edema. Marked tenderness over sacrum, no visible perirectal abscess; no erythema or swelling noted. Skin: Warm and dry. No petechiae, rash or ecchymosis. Neuro: Alert. Oriented x3. CN 2-12 grossly intact. Sensation grossly intact in all four extremities and DTR are symmetric. Psych: Appropriate mood and affect. Good insight. Home Medications Medication Instructions Recorded Acetaminophen [Tylenol .Regular 650 mg PO Q6H tablet 12/12/18 Strength -] Ibuprofen [Motrin -] 600 mg PO Q6H tablet 12/12/18 Lactobacillus Acidophilus [Bacid -] 1 tab PO DAILY tab 12/12/18 Sulfamethoxazole/Trimethoprim 1 each PO BID #5 tablet 12/12/18 [Bactrim DS -] Abnormal Lab Results 01/07/19 01/07/19 01/07/19 16:15 21:45 21:45 WBC 11.4 H Absolute Neuts (auto) 8.2 H Anion Gap 6 L Ur Leukocyte Esterase 1+ H ASSESSMENT AND PLAN: 1. Perirectal abscess? - Noncontrast lumbosacral CT scan shows thick walled fluid structure suggestive of perirectal abscess vs infected cyst vs neoplasm. Lumbar MRI without contrast showed no evidence of fracture, subluxation, spinal stenosis, abscess. Pelvis MRI without contrast showed "2.2 x 1.8 x 1.6 cm fluid focus in upper gluteal cleft subcutaneous tissues, suspicious for intergluteal pilonidal sinus. Nearby subcutaneous edema lower back reaches level of coccyx, with questionable periosteal reaction secondary to the overlying soft tissue inflammation. No obvious marrow signal abnormalities in sacrum or coccyx, but exam substantially limited by motion artifact. Normal uterus and bilateral ovaries. Small physiologic free fluid right adnexa." In view of associated leukocytosis will treat with IV and vancomycin and rocephin pending Surgery evaluation. Will consult ID. Patient also has pyuria but no UTI symptoms. Urine culture is pending. Will continue IN NS. 2. DVT prophylaxis - SCD 3. Advance directives - Full code
[2019-01-08] MEDS ORDERED: LACTATED RINGERS SOLUTION 1,000 ML/1,000 ML INFUS.BAG IV SCH (03:15)
--- NOTE | 2019-01-08 03:46 | HP ---
CHIEF COMPLAINT: Pain near the coccyx region PCP: HISTORY OF PRESENT ILLNESS: 18 F PMH significant for childhood asthma who presents today with pain in the region near her coccyx. This pain began on 4 days ago, rating 2/10. She described it as being similar to the discomfort she feels when she is sitting in one place for hours, however after standing up she didn't feel the pain subside. The next day her pain grew in intensity and she felt a throbbing sensation in that region. She has taken Tylenol at home to help, but it only helps her pain temporarily; when she sleeps she uses an icy hot patch and Tylenol but it doesn't completely alleviate the pain. Currently she is unable to lay on her back without pain, sit without pain, or bend over without pain. She rates her current pain as 10/10. She denies any fever, cough, chest pain, shortness of breath, abdominal pain, nausea, vomiting, diarrhea. ER course was notable for: (1) Pelvic MRI: was completed which showed: 2.2 x 1.8 x 1.6 cm fluid focus in upper gluteal cleft subcutaneous tissues, suspicious for intergluteal pilonidal sinus. Nearby subcutaneous edema lower back reaches level of coccyx, with questionable periosteal reaction secondary to the overlying soft tissue inflammation. (2)Lumbar MRI: No evidence of fracture, subluxation, spinal stenosis, abscess. Lumbar CT showed 2.3X2.2. cm thick walled fluid structure seen abutting posterior border of lower sacrum which had grown in size from 0.9X0.9 cm from a month ago. (3)Was given 1000 mg of Acetaminophen IV Recent Travel: None PAST MEDICAL HISTORY: Asthma (hasn't had exacerbation in years) PAST SURGICAL HISTORY: Appendectomy Social History: Smokin cigarettes a day for the past 3 years. 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 Family History: Father has diabetes, family member on mother's side has breast cancer(recently diagnosed) Allergies No Known Allergies Allergy (Verified 01/07/19 15:28) HOME MEDICATIONS: Home Medications Medication Instructions Recorded Acetaminophen [Tylenol .Regular 650 mg PO Q6H tablet 12/12/18 Strength -] Ibuprofen [Motrin -] 600 mg PO Q6H tablet 12/12/18 Lactobacillus Acidophilus [Bacid -] 1 tab PO DAILY tab 12/12/18 Sulfamethoxazole/Trimethoprim 1 each PO BID #5 tablet 12/12/18 [Bactrim DS -] REVIEW OF SYSTEMS In addition to above CONSTITUTIONAL: Absent: fever, chills, diaphoresis, generalized weakness, malaise, loss of appetite, weight change HEENT: Absent: rhinorrhea, nasal congestion, throat pain, throat swelling, difficulty swallowing, mouth swelling, ear pain, eye pain, visual changes CARDIOVASCULAR: Absent: chest pain, syncope, palpitations, irregular heart rate, lightheadedness , peripheral edema RESPIRATORY: Absent: cough, shortness of breath, dyspnea with exertion, orthopnea, wheezing, stridor, hemoptysis GASTROINTESTINAL: Absent: abdominal pain, abdominal distension, nausea, vomiting, diarrhea, constipation, melena, hematochezia GENITOURINARY: Absent: dysuria, frequency, urgency, hesitancy, hematuria, flank pain, genital pain MUSCULOSKELETAL: back pain Absent: myalgia, arthralgia, joint swelling, neck pain SKIN: Absent: rash, itching, pallor NEUROLOGIC: Absent: headache, focal weakness or paresthesias, dizziness, unsteady gait, seizure, mental status changes PHYSICAL EXAMINATION Vital Signs - 24 hr 01/07/19 15:28 Temperature 98.5 F Pulse Rate 85 Respiratory 18 Rate Blood Pressure 98/51 L O2 Sat by Pulse 99 Oximetry (%) GENERAL: Awake, alert, and fully oriented, in no acute distress. Was laying on her chest due to inability to sit or lay on back without pain. HEAD: Normal with no signs of trauma. EYES: Pupils equal, round and reactive to light, extraocular movements intact, sclera anicteric, conjunctiva clear. No lid lag. EARS, NOSE, THROAT: Ears normal, nares patent, oropharynx clear without exudates. Moist mucous membranes. NECK: Normal range of motion LUNGS: Breath sounds equal, clear to auscultation bilaterally. HEART: Regular rate and rhythm, normal S1 and S2 without murmur, rub or gallop. ABDOMEN: Soft, nontender, not distended, normoactive bowel sounds, no guarding, no rebound, no masses. UPPER EXTREMITIES: 2+ pulses, warm, well-perfused. No cyanosis. No clubbing. No peripheral edema. LOWER EXTREMITIES: 2+ pulses, warm, well-perfused. No calf tenderness. No peripheral edema. SKIN: Warm, dry, normal turgor, no rashes or lesions noted, normal capillary refill. BACK: Tender to palpation in the supragluteal region and around the gordon cleft. No erythema, no cysts noted, no drainage noted. Laboratory Results - last 24 hr 01/07/19 01/07/19 01/07/19 16:15 16:15 21:45 WBC 11.4 H RBC 4.62 Hgb 13.5 Hct 40.3 MCV 87.3 MCH 29.2 MCHC 33.4 RDW 12.7 Plt Count 258 D MPV 9.4 Absolute Neuts (auto) 8.2 H Neutrophils % 72.1 Lymphocytes % 22.6 Monocytes % 4.6 Eosinophils % 0.2 Basophils % 0.5 Nucleated RBC % 0 Sodium Potassium Chloride Carbon Dioxide Anion Gap BUN Creatinine Est GFR (CKD-EPI)AfAm Est GFR (CKD-EPI)NonAf Random Glucose Calcium Total Bilirubin AST ALT Alkaline Phosphatase Total Protein Albumin Urine Color Yellow Urine Appearance Cloudy Urine pH 5.5 D Ur Specific [place] 1.021 Urine Protein Negative Urine Glucose (UA) Negative Urine Ketones Negative Urine Blood Trace Urine Nitrite Negative Urine Bilirubin Negative Urine Urobilinogen 0.2 Ur Leukocyte Esterase 1+ H Urine WBC (Auto) 11 Urine RBC (Auto) 3 Urine Casts (Auto) 1 U Epithel Cells (Auto) 10.0 Urine Bacteria (Auto) 422.2 Urine HCG, Qual Negative 01/07/19 21:45 WBC RBC Hgb Hct MCV MCH MCHC RDW Plt Count MPV Absolute Neuts (auto) Neutrophils % Lymphocytes % Monocytes % Eosinophils % Basophils % Nucleated RBC % Sodium 138 Potassium 3.9 Chloride 102 Carbon Dioxide 29 Anion Gap 6 L BUN 8.1 Creatinine 0.7 Est GFR (CKD-EPI)AfAm 144.56 Est GFR (CKD-EPI)NonAf 124.72 Random Glucose 96 Calcium 9.4 Total Bilirubin 0.6 AST 16 ALT 30 Alkaline Phosphatase 88 Total Protein 7.4 Albumin 4.0 Urine Color Urine Appearance Urine pH Ur Specific [place] Urine Protein Urine Glucose (UA) Urine Ketones Urine Blood Urine Nitrite Urine Bilirubin Urine Urobilinogen Ur Leukocyte Esterase Urine WBC (Auto) Urine RBC (Auto) Urine Casts (Auto) U Epithel Cells (Auto) Urine Bacteria (Auto) Urine HCG, Qual ASSESSMENT/PLAN: 18 F PMH significant for asthma who presents today with lower back pain located near her coccyx, with MRI showing a fluid focus in the upper gluteal cleft; potentially a perirectal abscess. 1) Possible abscess Vancomycin 1250 mg BID Acetaminophen 1000 mg PRN IV (max dose 4) NPO NS @ 100 ml/hr Surgery Consult ID Consult 2) Pyuria in U/A Patient denies any symptoms of UTI but treating with Ceftriaxone 1 gram Daily IV Urine Culture Pending DVT Prophylaxis: SCDs F: NS @100 ml/hr E: Follow BMP N: NPO Dispo: Admit to medicine floors. Problem List - Problem (1) Allie-rectal abscess Code(s): K61.1 - RECTAL ABSCESS Visit type - Emergency Visit Emergency Visit: Yes ED Registration Date: 01/08/19 Care time: The patient presented to the Emergency Department on the above date and was hospitalized for further evaluation of their emergent condition. - New Patient This patient is new to me today: Yes Date on this admission: 01/08/19 - Critical Care Critical Care patient: No ATTENDING PHYSICIAN STATEMENT I saw and evaluated the patient. I reviewed the resident's note and discussed the case with the resident. I agree with the resident's findings and plan as documented. SUBJECTIVE: OBJECTIVE: ASSESSMENT AND PLAN:
[2019-01-08] MEDS ORDERED: ACETAMINOPHEN 1000 MG/100 ML VIAL (NON FORMULARY) IVPB PRN (04:36)
[2019-01-08] MEDS ORDERED: VANCOMYCIN 1,250 MG in DEXTROSE 5%-WATER - 250 ML IVPB SCH (04:45)
[2019-01-08] MEDS ORDERED: SODIUM CHLORIDE 1,000 ML IV SCH ×2 (05:00→20:46)
[2019-01-08] MEDS ORDERED: CEFTRIAXONE 1 GM in DEXTROSE 5%-WATER - 50 ML IVPB SCH (05:03)
[2019-01-08] MEDS: VANCOMYCIN HCL 1,250 MG in DEXTROSE 5%-WATER - 250 ML IVPB SCH ×2 (06:39→07:01)
[2019-01-08] MEDS ORDERED: ACETAMINOPHEN 325 MG TABLET (FP) PO PRN ×2 (06:52→20:46)
[2019-01-08 07:50] VITALS: BMI 28.9
[2019-01-08] MEDS ORDERED: IBUPROFEN 600 MG TABLET (FP) PO ONE (08:00)
[2019-01-08 08:56] LABS: BASO % 0.5 % (0-2.0); EOS % 0.3 % (0-4.5); HEMATOCRIT 38.2 % (32.4-45.2); LYMPH % 26.3 % (8-40); MCH 29.6 pg (25.7-33.7); MCHC 33.9 g/dl (32.0-36.0); MEAN CELL VOLUME 87.2 fl (80-96); MEAN PLT VOLUME 9.9 fl (7.5-11.1); MONO % 5.3 % (3.8-10.2); NEUT % 67.6 % (42.8-82.8); PLATELET COUNT 250 K/MM3 (134-434); RBC 4.38 M/mm3 (3.60-5.2); RDW 12.5 % (11.6-15.6)
[2019-01-08 09:02] LABS: ALBUMIN 3.7 g/dl (3.4-5.0); BILIRUBIN,TOTAL 0.7 mg/dL (0.2-1); CALCIUM 9.1 mg/dL (8.5-10.1); CREATININE 0.6 mg/dL (0.55-1.3); MAGNESIUM 2.3 mg/dL (1.8-2.4); POTASSIUM 4.1 mmol/L (3.5-5.1); TOT PROT 7.2 g/dl (6.4-8.2)
[2019-01-08] MEDS ORDERED: diphenhydrAMINE HCL 25 MG CAPSULE (FP) PO ONE (09:15)
[2019-01-08 09:17] LABS: INR 1.03 (0.83-1.09); PROTHROMBIN TIME (PATIENT) 12.2 SEC (9.7-13.0)
[2019-01-08 09:20] LABS: ACTIVATED PTT 36.6 SECONDS (25.2-36.5)
--- NOTE | 2019-01-08 09:26 | CON.ID ---
Consult Consult Specialty:: infectious disease Referred by:: hospitalist Reason for Consultation:: possible perirectal abscess - History of Present Illness Chief Complaint: sacral pain History of Present Illness: 18 yo presented to ED last night with sacral pain for 2 days no trauma she is s/p lap appendectomy 12/11/18 she was discharged on a 3 day course of bactrim for UTI and got cefoxitin in the hospital she reports feeling well after the surgery until yesterday when she developed severe sacral pain last bm was Sunday and normal no blood in stools no urinary symptoms no abdominal pain no fevers or chills has not noticed any drainage from her sacrum no IVDU sexually active one partner history of chlamydia many years ago has never been hiv tested- agreeable to testing here was working as [employer] security developed generalized itching with the vancomycin infusion, it was discontinued - History Source History Provided By: Patient Limitations to Obtaining History: No Limitations - Past Medical History Pulmonary: Yes: Asthma (no meds) Renal/: Yes: UTI (in past, with sexual activity) - Past Surgical History Past Surgical History: Yes: Appendectomy - Alcohol/Substance Use Hx Alcohol Use: No History of Substance Use: reports: Marijuana (daily) Date of Last Use: 12/10/18 - Smoking History Smoking history: Current every day smoker Have you smoked in the past 12 months: Yes Aproximately how many cigarettes per day: 5 - Social History Usual Living Arrangement: With Parent ADL: Independent Occupation: [employer]- currently not working Place of : [facility] History of Recent Travel: No Home Medications - Allergies Allergies/Adverse Reactions: Allergies Allergy/AdvReac Type Severity Reaction Status Date / Time No Known Allergies Allergy Verified 01/07/19 15:28 Family Disease History - Family Disease History Family Disease History: CA: Grandparent (pat GF colon CA), Other: Father (htn) Review of Systems - Review of Systems Constitutional: reports: No Symptoms Eyes: reports: No Symptoms HENT: reports: No Symptoms Neck: reports: No Symptoms Cardiovascular: reports: No Symptoms Respiratory: reports: No Symptoms Gastrointestinal: reports: No Symptoms Genitourinary: reports: No Symptoms Musculoskeletal: reports: Other (sacral pain) Physical Exam Vital Signs: Vital Signs Temperature 98.2 F 01/08/19 07:46 Pulse Rate 72 01/08/19 07:46 Respiratory Rate 18 01/08/19 07:46 Blood Pressure 125/76 07/24/19 07:46 O2 Sat by Pulse Oximetry (%) 99 01/08/19 06:42 Constitutional: Yes: Well Nourished, Mild Distress Eyes: Yes: Conjunctiva Clear, EOM Intact HENT: Yes: Atraumatic, Normocephalic. No: Thrush Neck: Yes: Supple Cardiovascular: Yes: Regular Rate and Rhythm Respiratory: Yes: Regular, CTA Bilaterally Gastrointestinal: Yes: Normal Bowel Sounds, Soft. No: Tenderness ...Rectal Exam: Yes: Deferred, Other (pain to touch at sacrum, ?sinus, no erythema, no drainage noted) Extremities: Yes: WNL Edema: No Integumentary: Yes: WNL Psychiatric: Yes: Alert Labs: CBC, BMP 01/08/19 07:30 01/08/19 07:30 Imaging - Results Cat Scan: Report Reviewed MRI: Report Reviewed Problem List - Problems (1) Allie-rectal abscess Code(s): K61.1 - RECTAL ABSCESS (2) S/P appendectomy Code(s): Z90.49 - ACQUIRED ABSENCE OF OTHER SPECIFIED PARTS OF DIGESTIVE TRACT Assessment/Plan rocephin/flagyl abscess versus pilonidal cyst surgery evaluation- can d/c vancomycin
[2019-01-08] MEDS ORDERED: DEXTROSE 5%-WATER - 50 ML IVPB ONE (10:00)
[2019-01-08] MEDS ORDERED: cefTRIAXone SODIUM 1 GM VIAL ONE (10:00)
[2019-01-08] MEDS ORDERED: CEFTRIAXONE 1 GM in DEXTROSE 5%-WATER - 100 ML IVPB SCH (10:00)
--- NOTE | 2019-01-08 10:58 | CONSULT ---
- Consultation REQUESTING PROVIDER: CONSULT REQUEST: We have been asked to surgically evaluate this patient for Pilonidal cyst. PCP:Rosendo Huerta HISTORY OF PRESENT ILLNESS: 18yo female c/o sacral pain (top of the gluteal cleft) that has been worsening x 3 days, Patient states the pain began after sitting on her couch for several hours on Sunday. She denies any trauma to the area or other symptoms associated with the onset inluding CP, SOB, N/V/D, fever or chills. She denies having a history of similar symptoms in the past. LMP was 2 weeks ago. Of note: Patient had a laparoscopic appendectomy on 12/11/[address] Fields and was also treated for UTI at that time - urine culture grew Staphylococcus saprophyticus - was discharged on 12/12/18 on oral Bactrim. PMHx: Denies PSHx: Denies Home Medications Medication Instructions Recorded Acetaminophen [Tylenol .Regular 650 mg PO Q6H tablet 12/12/18 Strength -] Ibuprofen [Motrin -] 600 mg PO Q6H tablet 12/12/18 Lactobacillus Acidophilus [Bacid -] 1 tab PO DAILY tab 12/12/18 Sulfamethoxazole/Trimethoprim 1 each PO BID #5 tablet 12/12/18 [Bactrim DS -] Abnormal Lab Results 01/07/19 01/07/19 01/07/19 16:15 21:45 21:45 WBC 11.4 H Absolute Neuts (auto) 8.2 H Anion Gap 6 L Ur Leukocyte Esterase 1+ H Allergies Allergy/AdvReac Type Severity Reaction Status Date / Time No Known Allergies Allergy Verified 01/07/19 15:28 REVIEW OF SYSTEMS: CONSTITUTIONAL: Absent: fever, chills, diaphoresis, generalized weakness, malaise, loss of appetite, weight change CARDIOVASCULAR: Absent: chest pain, syncope, palpitations, irregular heart rate, lightheadedness , peripheral edema RESPIRATORY: Absent: cough, shortness of breath, dyspnea with exertion, wheezing, GASTROINTESTINAL: Absent: abdominal pain, abdominal distension, nausea, vomiting, diarrhea, constipation, GENITOURINARY: Absent: +dysuria, frequency, urgency, hesitancy, MUSCULOSKELETAL: Absent: myalgia, arthralgia, joint swelling, back pain, neck pain SKIN: Absent: rash, itching, pallor HEMATOLOGIC/IMMUNOLOGIC: Absent: easy bleeding, easy bruising, lymphadenopathy NEUROLOGIC: Absent: headache, focal weakness, paresthesias, dizziness, unsteady gait bladder or bowel incontinence PSYCHIATRIC: Absent: anxiety, depression, suicidal or homicidal ideation, hallucinations. PHYSICAL EXAM: A&Ox3, NAD Normocephalic, atraumatic. External ears are normal and hearing is grossly intact. No nasal discharge. Ext: Peripheral pulses intact. No leg edema. Skin: small sinus opening @ 5mm in diameter at top of the gluteal cleft. no active d/c, no evidence of collection. Surrounding tissue intact with no tracking erythema, or edema. Exquisitly TTP throughout- patient unable to fully comply with exam of the effected area.remainder of skin exam Warm and dry. No petechiae, rash or ecchymosis. Neuro: Alert. Oriented x3. CN 2-12 grossly intact. Sensation grossly intact in all four extremities and DTR are symmetric. Psych: Appropriate mood and affect. Good insight. Vital Signs Temperature 98.2 F 01/08/19 07:46 Pulse Rate 72 01/08/19 07:46 Respiratory Rate 18 01/08/19 07:46 Blood Pressure 125/76 01/08/19 07:46 O2 Sat by Pulse Oximetry (%) 99 01/08/19 06:42 Lab Results WBC 9.0 K/mm3 (4.0-10.0) 01/08/19 07:30 RBC 4.38 M/mm3 (3.60-5.2) 01/08/19 07:30 Hgb 13.0 GM/dL (10.7-15.3) 01/08/19 07:30 Hct 38.2 % (32.4-45.2) 01/08/19 07:30 MCV 87.2 fl (80-96) 01/08/19 07:30 MCHC 33.9 g/dl (32.0-36.0) 01/08/19 07:30 RDW 12.5 % (11.6-15.6) 01/08/19 07:30 Plt Count 250 K/MM3 (134-434) 01/08/19 07:30 Sodium 138 mmol/L (136-145) 01/08/19 07:30 Potassium 4.1 mmol/L (3.5-5.1) 01/08/19 07:30 Chloride 103 mmol/L (98-107) 01/08/19 07:30 Carbon Dioxide 29 mmol/L (21-32) 01/08/19 07:30 Anion Gap 6 MMOL/L (8-16) L 01/08/19 07:30 BUN 9.0 mg/dL (7-18) 01/08/19 07:30 Creatinine 0.6 mg/dL (0.55-1.3) 01/08/19 07:30 Random Glucose 97 mg/dL (74-106) 01/08/19 07:30 Calcium 9.1 mg/dL (8.5-10.1) 01/08/19 07:30 Blood Type O POSITIVE 01/08/19 07:30 Antibody Screen Negative 01/08/19 07:30 INR 1.03 (0.83-1.09) 01/08/19 07:30 Imaging on this admission: Noncontrast lumbosacral CT scan shows thick walled fluid structure suggestive of "perirectal abscess vs infected cyst vs neoplasm". Lumbar MRI without contrast showed no evidence of fracture, subluxation, spinal stenosis, abscess. Pelvis MRI without contrast showed "2.2 x 1.8 x 1.6 cm fluid focus in upper gluteal cleft subcutaneous tissues, suspicious for intergluteal pilonidal sinus. Nearby subcutaneous edema lower back reaches level of coccyx, with questionable periosteal reaction secondary to the overlying soft tissue inflammation. No obvious marrow signal abnormalities in sacrum or coccyx, but exam substantially limited by motion artifact. Normal uterus and bilateral ovaries. Small physiologic free fluid right adnexa." Problem List - Problems (1) Pilonidal cyst Assessment/Plan: 1) NPO for surgery with Dr Aguilar today 2. DVT prophylaxis - SCD 3) IV ABX per ID 4) f/u urine culture 5) Pain control Evaluation and plan discussed with Dr Aguilar. Code(s): L05.91 - PILONIDAL CYST WITHOUT ABSCESS
--- NOTE | 2019-01-08 15:43 | PN ---
Physical Exam: SUBJECTIVE: Patient seen and examined at the bedside. Patient lying prone on bedside in excruciating pain to palpation. OBJECTIVE: Vital Signs Period Temp Pulse Resp BP Sys/Angel Pulse Ox Last 24 Hr 98.2 F-98.2 F 72-73 16-18 93-125/54-76 99-99 GENERAL: The patient is prone so couldnt do any exams of anterior body, otherwise awake, alert, and fully oriented, in acute distress. LUNGS: Breath sounds equal, clear to auscultation bilaterally, no wheezes, no crackles, no accessory muscle use. Sacral region- no cyst on palpation, ttp, no fluctuance or nodule present just tenderness. Laboratory Results - last 24 hr 01/07/19 01/07/19 01/07/19 16:15 16:15 21:45 WBC 11.4 H RBC 4.62 Hgb 13.5 Hct 40.3 MCV 87.3 MCH 29.2 MCHC 33.4 RDW 12.7 Plt Count 258 D MPV 9.4 Absolute Neuts (auto) 8.2 H Neutrophils % 72.1 Lymphocytes % 22.6 Monocytes % 4.6 Eosinophils % 0.2 Basophils % 0.5 Nucleated RBC % 0 PT with INR INR PTT (Actin FS) Sodium Potassium Chloride Carbon Dioxide Anion Gap BUN Creatinine Est GFR (CKD-EPI)AfAm Est GFR (CKD-EPI)NonAf Random Glucose Calcium Magnesium Total Bilirubin AST ALT Alkaline Phosphatase Total Protein Albumin Urine Color Yellow Urine Appearance Cloudy Urine pH 5.5 D Ur Specific [place] 1.021 Urine Protein Negative Urine Glucose (UA) Negative Urine Ketones Negative Urine Blood Trace Urine Nitrite Negative Urine Bilirubin Negative Urine Urobilinogen 0.2 Ur Leukocyte Esterase 1+ H Urine WBC (Auto) 11 Urine RBC (Auto) 3 Urine Casts (Auto) 1 U Epithel Cells (Auto) 10.0 Urine Bacteria (Auto) 422.2 Urine HCG, Qual Negative Blood Type Antibody Screen 01/07/19 01/08/19 01/08/19 21:45 07:30 07:30 WBC 9.0 RBC 4.38 Hgb 13.0 Hct 38.2 MCV 87.2 MCH 29.6 MCHC 33.9 RDW 12.5 Plt Count 250 MPV 9.9 Absolute Neuts (auto) 6.1 Neutrophils % 67.6 Lymphocytes % 26.3 Monocytes % 5.3 Eosinophils % 0.3 Basophils % 0.5 Nucleated RBC % 0 PT with INR INR PTT (Actin FS) Sodium 138 138 Potassium 3.9 4.1 Chloride 102 103 Carbon Dioxide 29 29 Anion Gap 6 L 6 L BUN 8.1 9.0 Creatinine 0.7 0.6 Est GFR (CKD-EPI)AfAm 144.56 152.08 Est GFR (CKD-EPI)NonAf 124.72 131.21 Random Glucose 96 97 Calcium 9.4 9.1 Magnesium 2.3 Total Bilirubin 0.6 0.7 AST 16 17 ALT 30 28 Alkaline Phosphatase 88 92 Total Protein 7.4 7.2 Albumin 4.0 3.7 Urine Color Urine Appearance Urine pH Ur Specific [place] Urine Protein Urine Glucose (UA) Urine Ketones Urine Blood Urine Nitrite Urine Bilirubin Urine Urobilinogen Ur Leukocyte Esterase Urine WBC (Auto) Urine RBC (Auto) Urine Casts (Auto) U Epithel Cells (Auto) Urine Bacteria (Auto) Urine HCG, Qual Blood Type Antibody Screen 01/08/19 01/08/19 07:30 07:30 WBC RBC Hgb Hct MCV MCH MCHC RDW Plt Count MPV Absolute Neuts (auto) Neutrophils % Lymphocytes % Monocytes % Eosinophils % Basophils % Nucleated RBC % PT with INR 12.20 INR 1.03 PTT (Actin FS) 36.6 H Sodium Potassium Chloride Carbon Dioxide Anion Gap BUN Creatinine Est GFR (CKD-EPI)AfAm Est GFR (CKD-EPI)NonAf Random Glucose Calcium Magnesium Total Bilirubin AST ALT Alkaline Phosphatase Total Protein Albumin Urine Color Urine Appearance Urine pH Ur Specific [place] Urine Protein Urine Glucose (UA) Urine Ketones Urine Blood Urine Nitrite Urine Bilirubin Urine Urobilinogen Ur Leukocyte Esterase Urine WBC (Auto) Urine RBC (Auto) Urine Casts (Auto) U Epithel Cells (Auto) Urine Bacteria (Auto) Urine HCG, Qual Blood Type O POSITIVE Antibody Screen Negative Active Medications Generic Name Dose Route Start Last Admin Trade Name Freq PRN Reason Stop Dose Admin Acetaminophen 650 mg 01/08/19 06:52 Tylenol - PO Q6H PRN Fever Sodium Chloride 1,000 mls @ 100 mls/hr 01/08/19 05:00 01/08/19 06:41 Normal Saline - IV Not Given ASDIR PACO Ceftriaxone Sodium 1 gm/ 50 mls @ 100 mls/hr 01/08/19 05:03 01/08/19 11:11 Dextrose IVPB 100 mls/hr DAILY PACO Administration Protocol Metronidazole 500 mg in 100 mls @ 100 mls/hr 01/08/19 10:00 01/08/19 12:29 Flagyl 500mg Premixed Ivpb - IVPB 100 mls/hr Q8H-IV PACO Administration ASSESSMENT/PLAN: 18 F PMH significant for childhood asthma, chlamydia, s/p lap appcaleb (12/11/18), who was recently put on a 3 day Rx of bactrim at home, and presented yesterday with pain in the region near her coccyx. #Pilonidal cyst vs deep horseshoe abscess -surgery done to Incise and drain it - periop abx by Dr. Rae started on ceftriaxone and flagyl, after vanco caused a diffuse pruritic erthematous rash. - patient will benefit from incentive haily post op - pain control post op - IV NS at 100ml/hr - monitoring Hb transfuse if <7. DVT PPX: continue SCD's and lovenox can be started tomorrow 40mg sq. F- continue 100 ml IV NS. E- will monitor lytes N- normal diet as tolerated postop Visit type - Emergency Visit Emergency Visit: No - New Patient This patient is new to me today: Yes Date on this admission: 01/08/19 - Critical Care Critical Care patient: No - Discharge Referral Referred to [facility] Med [facility] No ATTENDING PHYSICIAN STATEMENT I saw and evaluated the patient. I reviewed the resident's note and discussed the case with the resident. I agree with the resident's findings and plan as documented. SUBJECTIVE: OBJECTIVE: ASSESSMENT AND PLAN:
[2019-01-08] MEDS ORDERED: BENZOIN TINCTURE SWABSTICK TP ONE (16:33)
--- NOTE | 2019-01-08 17:47 | PN ---
Teaching Attending Note Name of Resident: Anahi Lara ATTENDING PHYSICIAN STATEMENT I saw and evaluated the patient. I reviewed the resident's note and discussed the case with the resident. I agree with the resident's findings and plan as documented. SUBJECTIVE: pain in sacral area. no cp or SOB , no palpitations OBJECTIVE: NAD CV: RRR Lungs: CTAB Ext : No edema ASSESSMENT AND PLAN: 18 y/o lady with h/o recent UTI , and appendectomy, h/o Chlamydia, marijuana use who presented with coccyx pain . she was found a fluid collection in sacral area 1- fluid collection in sacral area: possible pilonidal cyst vs abscess formation - cont Abx - for OR today - NPO - cont IVF
[2019-01-08] MEDS ORDERED: KETAMINE HCL 200 MG/20 ML VIAL ONE (19:32)
[2019-01-08] MEDS ORDERED: LIDOCAINE HCL 1%, 10 MG/ML (20ML VIAL) ONE (19:35)
[2019-01-08] MEDS ORDERED: MIDAZOLAM HCL 2 MG/2 ML SINGLE DOSE VIAL ONE (19:41)
[2019-01-08] MEDS ORDERED: LIDOCAINE HCL 1%, 10 MG/ML (50 mL VIAL) IJ ONE (19:42)
[2019-01-08] MEDS ORDERED: DEXAMETHASONE SOD PHOSPHATE 4 MG/1 ML VIAL ONE (19:48)
[2019-01-08] MEDS ORDERED: KETOROLAC TROMETHAMINE 30 MG/1 ML VIAL ONE (19:48)
[2019-01-08] MEDS ORDERED: ONDANSETRON 4 MG/2 ML VIAL IVPUSH PRN (20:06)
[2019-01-08] MEDS ORDERED: LACTATED RINGERS SOLUTION 1,000 ML IV SCH (20:15)
[2019-01-08] MEDS ORDERED: oxyCODONE HCL 5 MG TABLET PO PRN (20:42)
[2019-01-08] MEDS: LACTATED RINGERS SOLUTION 1,000 ML IV SCH (21:05)
--- NOTE | 2019-01-08 21:58 | OP ---
Operative Note - Note: Operative Date: 01/08/19 Pre-Operative Diagnosis: pilonidal abscess Operation: incision/drainage pilonidal abscess Findings: pilonidal abscess and sinus tract Surgeon: Moncho Aguilar Anesthesiologist/TIMEKEEPER: Dionisio Samson Anesthesia: MAC Specimens Removed: abscess contents for c and s Estimated Blood Loss (mls): 10 Drains & Tubes with Location: 1/2" packing
[2019-01-09 07:40] LABS: BASO % 0.1 % (0-2.0); HEMATOCRIT 37.3 % (32.4-45.2); HEMOGLOBIN 12.8 GM/dL (10.7-15.3); LYMPH % 12.5 % (8-40); MCH 29.8 pg (25.7-33.7); MCHC 34.2 g/dl (32.0-36.0); MEAN CELL VOLUME 87.3 fl (80-96); MEAN PLT VOLUME 9.9 fl (7.5-11.1); MONO % 2.8 % (3.8-10.2); NEUT % 84.6 % (42.8-82.8); PLATELET COUNT 249 K/MM3 (134-434); RBC 4.28 M/mm3 (3.60-5.2); RDW 12.4 % (11.6-15.6); WHITE BLOOD COUNT 8.3 K/mm3 (4.0-10.0)
[2019-01-09 08:10] LABS: ALBUMIN 3.5 g/dl (3.4-5.0); CALCIUM 8.9 mg/dL (8.5-10.1); CREATININE 0.6 mg/dL (0.55-1.3); POTASSIUM 4.5 mmol/L (3.5-5.1); TOT PROT 7.1 g/dl (6.4-8.2)
--- NOTE | 2019-01-09 13:12 | PN ---
Progress Note (short form) - Note Progress Note: Anesthesia POD#1 S/P Lap Appendectomy under GA VSS,no N/V,eating and drinking,pain is bearable. No complications to anesthesia seen. Nela Saldivar MD.
--- NOTE | 2019-01-09 13:27 | PN ---
Progress Note (short form) - Note Progress Note: Anesthesia Addendum S/P Drainage of Pilonidal cyst under Sedation ,VSS,no N/V, No complications to anesthesia seen. Nela Saldivar MD.
--- NOTE | 2019-01-09 14:06 | PN ---
Progress Note (short form) - Note Progress Note: much improved s/p incision and drainage pilonidal abscess Vital Signs Period Temp Pulse Resp BP Sys/Angel Pulse Ox Last 24 Hr 98.1 F-99 F 69-84 14-20 109-120/58-89 98-100 surgical dressing- no purulence, wound is packed CBC, BMP 01/09/19 06:45 01/09/19 06:45 gram stain of abscess few pmns, rbcs, few gpc clusters a/p s/p incision and drainage of pilonidal abscess- awaiting post op surgery check no objection to switch to po augmentin will need abscess culture followed up if she is discharged today d/w hospitalist service Problem List - Problems (1) Allie-rectal abscess Code(s): K61.1 - RECTAL ABSCESS (2) S/P appendectomy Code(s): Z90.49 - ACQUIRED ABSENCE OF OTHER SPECIFIED PARTS OF DIGESTIVE TRACT
[2019-01-09] MEDS ORDERED: MORPHINE SULFATE 2 MG/ML VIAL SQ ONE (15:45)
[2019-01-09] MEDS: LACTATED RINGERS SOLUTION 1,000 ML IV SCH (15:55)
--- NOTE | 2019-01-09 16:10 | PN ---
Teaching Attending Note Name of Resident: Anahi Lara ATTENDING PHYSICIAN STATEMENT I saw and evaluated the patient. I reviewed the resident's note and discussed the case with the resident. I agree with the resident's findings and plan as documented. SUBJECTIVE: No fever or chills. pain in buttock area is better OBJECTIVE: NAD CV: RRR Lungs: CTAB Ext : No edema sacral wound with packing and bloody discharge on gauze and clean n on erythematous skinaround it ASSESSMENT AND PLAN: 18 y/o lady with h/o recent UTI , and appendectomy, h/o Chlamydia, marijuana use who presented with coccyx pain . she was found a fluid collection in sacral area 1- Pilonidal cyst abscess s/p resection - Surgical evaluation pending. - ? instructions about packing and wound care - Abx pending surgical eval - will follow wound cx - DC IVF dispo : pending above
[2019-01-09] MEDS ORDERED: MORPHINE SULFATE 2 MG/ML VIAL ONE (16:41)
[2019-01-09] MEDS ORDERED: MORPHINE SULFATE 2 MG/ML VIAL IVPUSH ONE (16:44)
[2019-01-09] MEDS ORDERED: oxyCODONE HCL 5 MG TABLET PO PRN (16:45)
[2019-01-09] MEDS ORDERED: IBUPROFEN 600 MG TABLET (FP) PO PRN (16:45)
--- NOTE | 2019-01-09 16:57 | PN ---
Progress Note (short form) - Note Progress Note: POD 1 s/p incision/drainage pilonidal abscess Pt seen and examined. Reports she is feeling slightly better today. Pain is controlled with oxy. Has been oob to restroom. Tolerating diet. Denies cp/sob, n /v/d. Vital Signs Temp 98.1 F 01/09/19 14:00 Pulse 66 01/09/19 14:00 Resp 20 01/09/19 14:00 BP 116/67 01/09/19 14:00 Pulse Ox 98 01/09/19 09:00 Intake & Output 01/08/19 01/09/19 01/09/19 23:59 11:59 23:59 Intake Total 8420 839 6709 Balance 2962 145 7065 Intake: IV 3322 493 7046 Normal Saline - 1,000 ml 700 @ 100 mls/hr IV ASDIR PACO Rx#:[id number] Normal Saline - 1,000 ml 507 580 7624 @ 100 mls/hr IV ASDIR PACO Rx#:[id number] IVPB 200 Oral 200 Other: Voiding Method Bedpan # Unmeasured Voids Void 2 1 2 Bowel Movement No No No CBC, BMP 01/09/19 06:45 01/09/19 06:45 Gen: awake, alert, nad. laying on stomach Resp: unlabored on RA Sacrum: dressing removed, gauze soaked with dried blood. Packing removed (pt tearful secondary to pain), incision clean no purulent drainage no erythema. Covered with 4x4s and paper tape. A/P: 18 y/o F w/ no significant PMHx a/w pilonidal abscess now POD 1, s/p incision/drainage pilonidal abscess. afebrile vss. Wound stable -F/U OR cultures and tailor abx appropriately -Change dressing daily, 4x4s/abd tape -Pillow/donught for comfort -OOb -Pain meds as needed -May be d/c'ed from general surgery perspective -Should f/u in the office in 7-10 days for wound check pt seen and examined with attending Dr Aguilar
[2019-01-09] MEDS ORDERED: AMOX TR/POT CLAV 500MG/125MG TABLETS (FP) PO SCH (17:30)
--- NOTE | 2019-01-09 17:32 | PN ---
Physical Exam: SUBJECTIVE: Patient seen and examined at the bedside. One time she was given tylenol for pain last night. OBJECTIVE: Vital Signs Period Temp Pulse Resp BP Sys/Angel Pulse Ox Last 24 Hr 98.1 F-99 F 66-84 14-20 109-122/58-89 98-100 GENERAL: The patient is awake, alert, and fully oriented, in no acute distress. HEAD: Normal with no signs of trauma. EYES: PERRL, extraocular movements intact, sclera anicteric, conjunctiva clear. No ptosis. ENT: Ears normal, nares patent, oropharynx clear without exudates, moist mucous membranes. NECK: Trachea midline, full range of motion, supple. LUNGS: Breath sounds equal, clear to auscultation bilaterally, no wheezes, no crackles, no accessory muscle use. HEART: Regular rate and rhythm, S1, S2 without murmur, rub or gallop. ABDOMEN: Soft, nontender, nondistended, normoactive bowel sounds, no guarding, no rebound. EXTREMITIES: 2+ pulses, warm, well-perfused, no edema. NEUROLOGICAL: Cranial nerves II through XII grossly intact. Normal speech, gait not observed. PSYCH: Normal mood, normal affect. SKIN: Warm, dry, normal turgor, no rashes or lesions noted, wound site packed and had bloody d/c, no pus, surgery will assess. Laboratory Results - last 24 hr 01/09/19 01/09/19 06:45 06:45 WBC 8.3 RBC 4.28 Hgb 12.8 Hct 37.3 MCV 87.3 MCH 29.8 MCHC 34.2 RDW 12.4 Plt Count 249 MPV 9.9 Absolute Neuts (auto) 7.0 Neutrophils % 84.6 H D Lymphocytes % 12.5 D Monocytes % 2.8 L Eosinophils % 0.0 D Basophils % 0.1 Nucleated RBC % 0 Sodium 139 Potassium 4.5 Chloride 105 Carbon Dioxide 27 Anion Gap 6 L BUN 9.0 Creatinine 0.6 Est GFR (CKD-EPI)AfAm 152.08 Est GFR (CKD-EPI)NonAf 131.21 Random Glucose 101 Calcium 8.9 Total Bilirubin 1.0 AST 20 ALT 29 Alkaline Phosphatase 94 Total Protein 7.1 Albumin 3.5 Active Medications Generic Name Dose Route Start Last Admin Trade Name Freq PRN Reason Stop Dose Admin Acetaminophen 650 mg 01/08/19 20:46 01/09/19 04:20 Tylenol - PO 650 mg Q6H PRN Administration Fever Amoxicillin/Clavulanate Potassium 1 tab 01/09/19 17:30 01/09/19 16:53 Augmentin - 500mg Tablet PO 1 tab BID@0800,1730 PACO Administration Sodium Chloride 1,000 mls @ 100 mls/hr 01/08/19 20:46 01/08/19 21:00 Normal Saline - IV Not Given ASDIR PACO Ibuprofen 600 mg 01/09/19 16:45 Motrin - PO Q6H PRN FEVER Oxycodone HCl 5 mg 01/09/19 16:45 Roxicodone - PO Q4H PRN PAIN LEVEL 4 - 6 ASSESSMENT/PLAN: 18 y/o lady with a PMH recent UTI previously on 3 days of Bactrim and lap appendectomy, h/o Chlamydia, marijuana use who presented with coccyx pain. she was found a fluid collection in sacral area #Pilonidal cyst abscess - Surgery Dr. Aguilar: wound gram stain showing pmn's, rbcs, and gram positive clusters, follow up cx, tailor abx appropriately -Change dressing daily, - 4x4s/abd tape -Pillow/donut for comfort -OOb -Pain meds as needed -May be d/c'ed from general surgery perspective -Should f/u in the office in 7-10 days for wound check Dispo: potentially tomorrow. Visit type - Emergency Visit Emergency Visit: Yes ED Registration Date: 01/08/19 Care time: The patient presented to the Emergency Department on the above date and was hospitalized for further evaluation of their emergent condition. - New Patient This patient is new to me today: No - Critical Care Critical Care patient: No - Discharge Referral Referred to [facility] Med [facility].C.: No ATTENDING PHYSICIAN STATEMENT I saw and evaluated the patient. I reviewed the resident's note and discussed the case with the resident. I agree with the resident's findings and plan as documented. SUBJECTIVE: OBJECTIVE: ASSESSMENT AND PLAN:
--- NOTE | 2019-01-09 18:27 | DS ---
Physical Exam: SUBJECTIVE: Patient seen and examined OBJECTIVE: Vital Signs Period Temp Pulse Resp BP Sys/Angel Pulse Ox Last 24 Hr 98.1 F-99 F 66-84 14-20 109-122/58-89 98-100 PHYSICAL EXAM GENERAL: The patient is awake, alert, and fully oriented, PRONE POSITION. HEAD: Normal with no signs of trauma. LUNGS: Breath sounds equal, clear to auscultation bilaterally, no wheezes, no crackles, no accessory muscle use. EXTREMITIES: 2+ pulses, warm, well-perfused, no edema. LABS Laboratory Results - last 24 hr 01/09/19 01/09/19 06:45 06:45 WBC 8.3 RBC 4.28 Hgb 12.8 Hct 37.3 MCV 87.3 MCH 29.8 MCHC 34.2 RDW 12.4 Plt Count 249 MPV 9.9 Absolute Neuts (auto) 7.0 Neutrophils % 84.6 H D Lymphocytes % 12.5 D Monocytes % 2.8 L Eosinophils % 0.0 D Basophils % 0.1 Nucleated RBC % 0 Sodium 139 Potassium 4.5 Chloride 105 Carbon Dioxide 27 Anion Gap 6 L BUN 9.0 Creatinine 0.6 Est GFR (CKD-EPI)AfAm 152.08 Est GFR (CKD-EPI)NonAf 131.21 Random Glucose 101 Calcium 8.9 Total Bilirubin 1.0 AST 20 ALT 29 Alkaline Phosphatase 94 Total Protein 7.1 Albumin 3.5 HOSPITAL COURSE: Date of Admission:01/08/19 Image: MRI PELVIS: There is a small collection just posterior to the coccyx oval- shaped and measures 1.6 cm AP dimension, 1.2 cm in width and 2.2 cm in height and is suspicious for a small abscess with associated cellulitis. There is also mild edema of the superior aspect of the left gluteus ronald muscle. This is a 18y/o F with prior PMH who was admitted for pilonidal cyst abscess. It was incised and drained by surgery (Dr. Aguilar). ID was consulted (Dr. Rae) and was placed on IV ceftriaxone and flagyl. She had urine culture and wound culture which are both going to be followed up as an o/p. She was sent home on ibuprofen 600mg and augmentin 875 BID for 7 days. Date of Discharge: 01/09/19 Minutes to complete discharge: 35 Discharge Summary Reason For Visit: PERIRECTAL ABSCESS Condition: Stable - Instructions Diet, Activity, Other Instructions: You were admitted for having an infection just above your buttock (pilonidal cyst abscess). We treated you with antibiotics. Dr. Aguilar, the surgeon, drained the infection out of your buttock (I&D). Medications prescribed for you at home: - You will need to continue augmentin by mouth 875 twice daily for 6 days starting 01/10/19. - Ibuprofen 600mg by mouth every 6 hrs as needed for pain - You will need to follow up with Dr. Aguilar in 7-10 days. - You should f/u with your Primary care doctor in 2 weeks. - You will need to follow up with with Dr. Rae (infectious disease doctor ) in 1 week. - You should return to the emergency room if you have any worsening of your current symptoms, or: chest pain, shortness of breath, fever, or chills. Wound care Instructions: You may shower beginning 01/09/19. When showering use mild soap and allow soap and water to run over the incision. Pat dry well after showering and cover with clean 4x4's and paper tape. Keep wound covered until follow up in the office. Call the office for an appointment in 7-10 days. Referrals: Moncho Aguilar MD [Staff Physician] - 1 Week Shaquille Roman MD [Primary Care Provider] - 1 Week Breana Rae MD [Staff Physician] - Disposition: HOME - Home Medications Comprehensive Discharge Medication List: Ambulatory Orders Amoxicillin/Potassium Clav [Augmentin 875-125 Tablet] 1 each PO Q12H #14 tablet 01/09/19 Ibuprofen 400 mg PO Q8H PRN #20 tablet 01/09/19 This patient is new to me today: No Emergency Visit: No Critical Care patient: No - Discharge Referral Referred to [facility] Med [facility] No ATTENDING PHYSICIAN STATEMENT I saw and evaluated the patient. I reviewed the resident's note and discussed the case with the resident. I agree with the resident's findings and plan as documented. SUBJECTIVE: OBJECTIVE: ASSESSMENT AND PLAN:
[2019-01-09 18:58] VITALS: BP 105/60; PULSE 69; TEMP 98.3
--- NOTE | 2019-01-11 13:21 | OP ---
DATE OF OPERATION: 01/08/2019 PREOPERATIVE DIAGNOSIS: Pilonidal abscess. POSTOPERATIVE DIAGNOSIS: Pilonidal abscess. PROCEDURE: Incision and drainage of pilonidal abscess. SURGEON: Moncho Aguilar MD ANESTHESIA: Local with IV sedation. OPERATIVE FINDINGS: There was a pilonidal abscess and sinus tract. The rest of the findings were unremarkable. PROCEDURE: The patient was placed on the operating room table in the prone position and the area over the pilonidal sinus tract and abscess was prepped with Betadine and draped in sterile fashion. A timeout was taken and after adequate IV sedation was achieved, the area was infiltrated with 1% lidocaine and 0.5% Marcaine local anesthesia. A vertical incision was made with the scalpel and taken down through the skin and subcutaneous tissue and pus was encountered under pressure in the pilonidal abscess. The purulent drainage was sent for culture and sensitivity. The cavity was copiously irrigated with a 50:50 mixture of saline and peroxide, followed by pure saline. Hemostasis was secured with electrocautery and then the wound was packed with 1/2-inch Iodoform packing. Dry sterile dressings were placed and the procedure terminated at this point and the patient transferred to the post anesthesia care unit in stable condition awake and alert. ESTIMATED BLOOD LOSS: 10 mL REPLACEMENT: Crystalloid. DRAINS: Iodoform packing 1/2-inch. SPECIMEN: Culture and sensitivity to Microbiology. I, Moncho Aguilar, was physically present in the operating room from the time was placed on the operating room table until she was transferred to the post anesthesia care unit in [place]. MD JANEL Dai/[id number]
== END 2019-01-09 19:09 | disposition home or self-care (01) | DRG 603 ==
LOC: JER 15:20 → JERBED 01-08 03:02 → J8W 01-08 06:13
PROVIDERS: ADMIT Internal Medicine; ATTEND Internal Medicine
PROC: 0H98XZX Drainage of Buttock Skin, External Approach, Diagnostic (ICD-10-PCS; principal; 2019-01-08 16:30)
DX: L05.01 Pilonidal cyst with abscess (principal); N39.0 Urinary tract infection, site not specified; F17.210 Nicotine dependence, cigarettes, uncomplicated; B95.7 Other staphylococcus as the cause of diseases classified elsewhere; J45.909 Unspecified asthma, uncomplicated; Z90.49 Acquired absence of other specified parts of digestive tract
CPT/HCPCS: 36415; 72131-TC; 72148-TC; 72195-TC; 80053; 81003; 83735; 84703; 85025; 85610; 85730; 86850; 86900; 86901; 87070; 87077; 87086; 87205; 94760; 99284-25; J0131

== ENCOUNTER 2019-05-23 04:20 | Inpatient (IN) | payer BC ==
--- NOTE | 2019-05-23 04:55 | PDOC ---
History of Present Illness - General Chief Complaint: Abscess Boil Stated Complaint: PAIN LOWER SPINE Time Seen by Provider: 05/23/19 04:48 History Source: Patient Exam Limitations: No Limitations - History of Present Illness Initial Comments: Sara is a 18 yo F w a hx of childhood asthma and a perirectal abscess who presents to the [facility] er with a significant amount of pain immediately above and to the left of her rectum. She states the pain is primarily right near her coccyx. She states the pain has gradually been worsening. She was scared to come into the hospital because she was worried that doing anything to it would hurt too much. She states that when she has to defecate it is painful for her. She states that it is extremely painful for her to lie flat on her back because putting any pressure where it hurts is too much for her. Denies fevers, chills, nausea, vomiting, dysuria, frequency, urgency, chest pain , SOB, difficulty breathing PCP: Shaquille Roman PSH: Appendectomy Social Hx: daily cigarette and marijuana user, recreational alcohol, denies illicit drug usage Allergies: Vancomycin Family Hx: Diabetes in father, breast cancer in mother's family Past History - Past Medical History Allergies/Adverse Reactions: Allergies Allergy/AdvReac Type Severity Reaction Status Date / Time vancomycin Allergy Mild Itching Verified 05/23/19 04:42 Home Medications: Ambulatory Orders Ibuprofen 400 mg PO Q8H PRN #20 tablet 01/09/19 Oxycodone HCl/Acetaminophen [Percocet 5-325 mg Tablet] 1 - 2 tab PO Q4H PRN #8 tablet MDD 6 05/23/19 Asthma: Yes (no intubations) COPD: No - Immunization History TDAP Vaccination: Yes Immunization Up to Date: Yes - Psycho Social/Smoking Cessation Hx Smoking Status: No Smoking History: Current every day smoker Have you smoked in the past 12 months: Yes Number of Cigarettes Smoked Daily: 5 Hx Alcohol Use: No Drug/Substance Use Hx: No Substance Use Type: None Review of Systems - Review of Systems Able to Perform ROS?: Yes Comments:: CONSTITUTIONAL: Absent: fever, chills, diaphoresis, generalized weakness, malaise, loss of appetite HEENT: Absent: rhinorrhea, nasal congestion, throat pain, throat swelling, difficulty swallowing, mouth swelling, ear pain, eye pain, visual Changes CARDIOVASCULAR: Absent: chest pain, syncope, palpitations, irregular heart rate, lightheadedness , peripheral edema RESPIRATORY: Absent: cough, shortness of breath, dyspnea with exertion, orthopnea, wheezing, stridor, hemoptysis GASTROINTESTINAL: Absent: abdominal pain, abdominal distension, nausea, vomiting, diarrhea, constipation, melena, hematochezia GENITOURINARY: Present: Rectal pain Absent: dysuria, frequency, urgency, hesitancy, hematuria, flank pain, genital pain MUSCULOSKELETAL: Absent: myalgia, arthralgia, joint swelling SKIN: Present: Rash Absent: itching, pallor HEMATOLOGIC/IMMUNOLOGIC: Absent: easy bleeding, easy bruising, lymphadenopathy, frequent infections ENDOCRINE: Absent: unexplained weight gain, unexplained weight loss, heat intolerance, cold intolerance NEUROLOGIC: Absent: headache, focal weakness or paresthesias, dizziness, unsteady gait, seizure, mental status changes, bladder or bowel incontinence PSYCHIATRIC: Absent: anxiety, depression, suicidal or homicidal ideation, hallucinations. *Physical Exam - Physical Exam GENERAL: Well developed, well nourished. Awake and alert. No acute distress. HEENT: Normocephalic, atraumatic. PERRLA, EOMI. No conjunctival pallor. Sclera are non- icteric. Moist mucous membranes. Oropharynx is clear. NECK: Supple. Full ROM. No JVD. No thyromegaly. No lymphadenopathy. CARDIOVASCULAR: Regular rate and rhythm. No murmurs, rubs, or gallops. Distal pulses are 2+ and symmetric. PULMONARY: No evidence of respiratory distress. Lungs clear to auscultation bilaterally. No wheezing, rales or rhonchi. ABDOMINAL: Soft. Non-tender. Non-distended. No rebound or guarding. No organomegaly. Normoactive bowel sounds. MUSCULOSKELETAL Normal range of motion at all joints. No bony deformities or tenderness. No CVA tenderness. EXTREMITIES: No cyanosis. No clubbing. No edema. No calf tenderness. ANUS: There is an 2 cm erythematous and tender circular region on the left superior ano-rectal border which is indurant and fluctuant. SKIN: Warm and dry. Normal capillary refill. No jaundice. NEUROLOGICAL: Alert, awake, appropriate. Normal speech. Gait is normal without ataxia. PSYCHIATRIC: Cooperative. Good eye contact. Appropriate mood and affect. ED Treatment Course - LABORATORY CBC & Chemistry Diagram: 05/24/19 07:50 05/23/19 05:45 Medical Decision Making - Medical Decision Making Sara is a 18 yo F w a hx of childhood asthma and a perirectal abscess who presents to the [facility] er with a significant amount of pain immediately above and to the left of her rectum. She states the pain is primarily right near her coccyx. She states the pain has gradually been worsening. She was scared to come into the hospital because she was worried that doing anything to it would hurt too much. She states that when she has to defecate it is painful for her. She states that it is extremely painful for her to lie flat on her back because putting any pressure where it hurts is too much for her. Denies fevers, chills, nausea, vomiting, dysuria, frequency, urgency, chest pain , SOB, difficulty breathing Vital Signs Temp Pulse Resp BP Pulse Ox 98.0 F 93 H 18 124/74 99 05/23/19 04:50 05/23/19 04:50 05/23/19 04:50 05/23/19 04:50 05/23/19 04:50 DDx IBNLT: Anal abscess vs christopher-rectal abscess, pilonidal cyst, Fistulous tract Plan: Labs, urine, ekg, Pelvic CT, surgery consult - Dr. Aguilar saw her last time, NPO, IV hydration, pre-op labs, re-assess. Labs: WBC of 10.6, otherwise unremarkable Urine: Suggest patient has a UTI - Treating with ceftriaxone EKG: NS rate of 98, narrow complexes, normal axis, no hypertrophy, no ST elevations or depressions, no Q waves, no abnormal TWI's, QTc 436, VT [address]: Surgery Consult: Dr. Aguilar - Patient signed out to Dr. Dotson pending CT pelvis read and surgery consult Discharge - Discharge Information Problems reviewed: Yes Clinical Impression/Diagnosis: Pilonidal cyst, Pilonidal abscess Condition: Good Disposition: HOME - Admission Yes - Follow up/Referral - Patient Discharge Instructions - Post Discharge Activity
[2019-05-23] MEDS ORDERED: ACETAMINOPHEN 1000 MG/100 ML VIAL (NON FORMULARY) IVPB ONE (04:57)
[2019-05-23] MEDS ORDERED: SODIUM CHLORIDE 0.9% 500 ML INFUS.BAG IV ONE (04:57)
[2019-05-23] MEDS ORDERED: LIDOCAINE 5% TOPICAL PATCH TP ONE (04:58)
[2019-05-23] MEDS ORDERED: LACTATED RINGERS SOLUTION 1,000 ML/1,000 ML INFUS.BAG IV SCH (05:00)
[2019-05-23 06:03] LABS: BASO % 0.4 % (0-2.0); EOS % 0.2 % (0-4.5); HEMATOCRIT 42.8 % (32.4-45.2); HEMOGLOBIN 14.4 GM/dL (10.7-15.3); LYMPH % 18.8 % (8-40); MCH 29.1 pg (25.7-33.7); MCHC 33.6 g/dl (32.0-36.0); MEAN CELL VOLUME 86.5 fl (80-96); MEAN PLT VOLUME 9.3 fl (7.5-11.1); MONO % 5.3 % (3.8-10.2); NEUT % 75.3 % (42.8-82.8); PLATELET COUNT 264 K/MM3 (134-434); RBC 4.95 M/mm3 (3.60-5.2); RDW 12.5 % (11.6-15.6); WHITE BLOOD COUNT 10.6 K/mm3 (4.0-10.0)
[2019-05-23] MEDS ORDERED: ACETAMINOPHEN INJECTION 100 ML IVPB ONE (06:15)
[2019-05-23] MEDS ORDERED: LIDOCAINE 5% TOPICAL PATCH ONE ×2 (06:15→06:16)
[2019-05-23 06:20] LABS: HYALINE CASTS 6 /lpf (0-8); PH,URINE 5.5 (5.0-8.0); URINE APPEARANCE CLOUDY; URINE BACTERIA 133.7 /hpf (NEGATIVE); URINE BILIRUBIN NEGATIVE (NEGATIVE); URINE COLOR YELLOW; URINE GLUCOSE (UA) NEGATIVE (NEGATIVE); URINE KETONE NEGATIVE (NEGATIVE); URINE LEUK ESTERASE 1+ (NEGATIVE); URINE NITRITE NEGATIVE (NEGATIVE); URINE PROTEIN TRACE (NEGATIVE); URINE UROBILINOGEN 0.2 mg/dL (0.2-1.0); URINE WBC 22 /hpf (0-5)
[2019-05-23] MEDS ORDERED: CEFTRIAXONE 1,000 MG in DEXTROSE 5%-WATER - 50 ML IVPB ONE (06:21)
[2019-05-23 06:22] LABS: URINE RBC 7.5 /hpf (0-4)
[2019-05-23 06:24] LABS: ALBUMIN 4.4 g/dl (3.4-5.0); BILIRUBIN,TOTAL 1.1 mg/dL (0.2-1); BLOOD UREA NITROGEN 9.9 mg/dL (7-18); CALCIUM 9.7 mg/dL (8.5-10.1); CREATININE 0.7 mg/dL (0.55-1.3); POTASSIUM 3.8 mmol/L (3.5-5.1); TOT PROT 8.2 g/dl (6.4-8.2)
--- NOTE | 2019-05-23 06:24 | PDOC ---
Attending Attestation - Resident Resident Name: Chapo Blank - ED Attending Attestation I have performed the following: I have examined & evaluated the patient, The case was reviewed & discussed with the resident, I agree w/resident's findings & plan, Exceptions are as noted - HPI HPI: 05/23/19 07:25 See resident HPI - Physicial Exam PE: 05/23/19 07:25 Agree with exam as documented by resident - Medical Decision Making 05/23/19 07:26 Here with abscess a/w painful defecation Recurrence of juanis-nidal cyst vs christopher-rectal, fistula with abscess f/u labs, ct+ surgical eval dispo per clinical course
[2019-05-23 06:51] LABS: INR 1.07 (0.83-1.09); PROTHROMBIN TIME (PATIENT) 12.6 SEC (9.7-13.0)
[2019-05-23] MEDS ORDERED: CEFTRIAXONE 1 GM/50 ML BAG ONE (07:41)
--- NOTE | 2019-05-23 08:29 | CONSULT ---
- Consultation REQUESTING PROVIDER: CONSULT REQUEST: We have been asked to surgically evaluate this patient for perirectal abscess. PCP: HISTORY OF PRESENT ILLNESS: Sara is a 18 yo F with pmhx of childhood asthma and a pilonidal cyst -with I&D by Dr Aguilar on last admission 01/08/[address] [facility] er with a significant amount of pain at the top of her gluteal cleft. She states the pain has been progressive over the past few days. She states that when she has to defecate it is painful and extremely painful for her to lie flat on her back. Denies fevers, chills, nausea, vomiting, dysuria, frequency, urgency, chest pain , SOB, difficulty breathing PCP: Shaquille Roman PSH: Appendectomy Social Hx: daily cigarette and marijuana user, recreational alcohol, denies illicit drug usage Allergies: Vancomycin Family Hx: Diabetes in father, breast cancer in mother's family Past History - Past Medical History Allergies/Adverse Reactions: Allergies Allergy/AdvReac Type Severity Reaction Status Date / Time vancomycin Allergy Mild Itching Verified 05/23/19 04:42 Home Medications: Ambulatory Orders Ibuprofen 400 mg PO Q8H PRN #20 tablet 01/09/19 Asthma: Yes (no intubations) COPD: No - Immunization History TDAP Vaccination: Yes Immunization Up to Date: Yes - Psycho Social/Smoking Cessation Hx Smoking Status: No Smoking History: Current every day smoker Have you smoked in the past 12 months: Yes Number of Cigarettes Smoked Daily: 5 Hx Alcohol Use: No Drug/Substance Use Hx: No Substance Use Type: None Review of Systems - Review of Systems Able to Perform ROS?: Yes Comments:: REVIEW OF SYSTEMS: CONSTITUTIONAL: Absent: fever, chills, diaphoresis, generalized weakness, malaise, loss of appetite, weight change CARDIOVASCULAR: Absent: chest pain, syncope, palpitations, irregular heart rate, lightheadedness , peripheral edema RESPIRATORY: Absent: cough, shortness of breath, dyspnea with exertion, wheezing, GASTROINTESTINAL: Absent: abdominal pain, abdominal distension, nausea, vomiting, diarrhea, constipation, GENITOURINARY: Absent: dysuria, frequency, urgency, hesitancy, MUSCULOSKELETAL: Absent: myalgia, arthralgia, joint swelling, back pain, neck pain SKIN: Absent: rash, itching, pallor HEMATOLOGIC/IMMUNOLOGIC: Absent: easy bleeding, easy bruising, lymphadenopathy NEUROLOGIC: Absent: headache, focal weakness, paresthesias, dizziness, unsteady gait bladder or bowel incontinence PSYCHIATRIC: Absent: anxiety, depression, suicidal or homicidal ideation, hallucinations. PHYSICAL EXAM: A&Ox3, NAD Normocephalic, atraumatic. External ears are normal and hearing is grossly intact. No nasal discharge. Ext: Peripheral pulses intact. No leg edema. Skin: small sinus opening @ 3mm in diameter at top of the gluteal cleft. small well healed scar @1cm just medial to sinus. no active d/c, . Surrounding tissue intact with no tracking erythema, + indurration and Exquisitly TTP left> right buttock at top of gluteal cleft. patient unable to fully comply with exam of the effected area. remainder of skin exam Warm and dry. No petechiae, rash or ecchymosis. Neuro: Alert. Oriented x3. CN 2-12 grossly intact. Sensation grossly intact in all four extremities Psych: Appropriate mood and affect. Good insight. CT Pelvix 05/23 -Small SQ abscess just posterior to the coccyx with no evidence of tracking. Problem List - Problems (1) Pilonidal cyst Assessment/Plan: Patient stable, will need I&D in OR. 1) NPO for OR today with Dr Aguilar-I&D pilonidal cyst 2) IVF 3) ABX 4) pain control Evaluation and plan discussed with Dr Aguilar Code(s): L05.91 - PILONIDAL CYST WITHOUT ABSCESS
[2019-05-23] MEDS ORDERED: PROPOFOL 20 ML ONE (11:01)
[2019-05-23] MEDS ORDERED: MIDAZOLAM HCL 2 MG/2 ML SINGLE DOSE VIAL ONE ×2 (11:01→11:43)
[2019-05-23] MEDS ORDERED: LIDOCAINE HCL/PF 2% SDV 5ML VIAL ONE (11:01)
--- NOTE | 2019-05-23 11:36 | EKG ---
Test Reason : Blood Pressure : / mmHG Vent. Rate : 098 BPM Atrial Rate : 098 BPM P-R Int : 124 ms QRS Dur : 070 ms QT Int : 342 ms P-R-T Axes : 049 064 040 degrees QTc Int : 436 ms NORMAL SINUS RHYTHM WITH SINUS ARRHYTHMIA NO PREVIOUS ECGS AVAILABLE Confirmed by JEANNINE FORTUNE MD ([id number]) on 05/23/2019 11:35:50 AM Referred By: Confirmed By:JEANNINE FORTUNE MD
[2019-05-23] MEDS ORDERED: ONDANSETRON 4 MG/2 ML VIAL IVPUSH PRN (12:04)
[2019-05-23] MEDS ORDERED: oxyCODONE HCL 5 MG TABLET PO PRN ×2 (12:52)
--- NOTE | 2019-05-23 13:10 | OP ---
Operative Note - Note: Operative Date: 05/23/19 Pre-Operative Diagnosis: pilonidal cyst Operation: Incision and drainage of pilonidal cyst Post-Operative Diagnosis: Same as Pre-op Surgeon: Moncho Aguilar Clerk Of Court: Renee Erwin Anesthesiologist/STAFF PHYSICAL THERAPIST: Nela Saldivar Anesthesia: Spinal Estimated Blood Loss (mls): 20 Fluid Volume Replaced (mls): 300 Operative Report Dictated: Yes
--- NOTE | 2019-05-23 13:12 | SURG ---
Surgery Software Reliability Engineer Note Software Reliability Engineer: Renee Erwin PA-C Date of Service: 05/23/19 Diagnosis: pilonidal cyst Procedure: Incision and drainage of pilonidal cyst I was present for the entirety of the operative procedure. For further detail, please refer to operative report. Visit type - Case Type Case Type: ED Admission - Emergency Emergency Visit: Yes ED Registration Date: 05/23/19 Care time: The patient presented to the Emergency Department on the above date and was hospitalized for further evaluation of their emergent condition. - New patient This patient is new to me today: Yes Date on this admission: 05/23/19
[2019-05-23] MEDS ORDERED: IBUPROFEN 400 MG TABLET (FP) PO PRN ×2 (13:14→13:39)
[2019-05-23] MEDS: DOCUSATE SODIUM 100 MG CAPSULE (FP) PO SCH ×2 (17:08→21:31)
[2019-05-23 19:06] VITALS: BMI 25.0
[2019-05-23] MEDS ORDERED: FLU VACCINE QUAD 60 MCG/0.5 ML (MDV 19-20) IM ONE (19:08)
[2019-05-23] MEDS ORDERED: LIDOCAINE PATCH REMOVAL MC SCH (22:00)
[2019-05-24] MEDS: DOCUSATE SODIUM 100 MG CAPSULE (FP) PO SCH (06:11)
--- NOTE | 2019-05-24 09:30 | PN ---
Progress Note (short form) - Note Progress Note: Attending Surgeon POD#1 No c/o VSS AF wound-open; no purulent drainage; irrigated and repacked IMP: stable post op PLAN: D/C home to office f/u next week; patient knows how to do the wound care from before. Moncho Aguilar MD FACS
[2019-05-24 09:40] LABS: HEMATOCRIT 37.9 % (32.4-45.2); HEMOGLOBIN 12.5 GM/dL (10.7-15.3); MCH 28.7 pg (25.7-33.7); MEAN CELL VOLUME 86.9 fl (80-96); MEAN PLT VOLUME 9.8 fl (7.5-11.1); PLATELET COUNT 222 K/MM3 (134-434); RBC 4.36 M/mm3 (3.60-5.2); RDW 12.4 % (11.6-15.6); WHITE BLOOD COUNT 6.7 K/mm3 (4.0-10.0)
[2019-05-24 12:46] VITALS: BP 120/66; PULSE 78; TEMP 98
== END 2019-05-24 14:26 | disposition home or self-care (01) | DRG 345 ==
LOC: JER 04:20 → JSAMEDAYSX 12:23 → J8W 16:22
PROVIDERS: ADMIT Surgery; ATTEND Surgery
PROC: 0D9P0ZX Drainage of Rectum, Open Approach, Diagnostic (ICD-10-PCS; principal; 2019-05-23 10:00)
DX: K61.1 Rectal abscess (principal); L05.01 Pilonidal cyst with abscess; F17.210 Nicotine dependence, cigarettes, uncomplicated; B95.5 Unspecified streptococcus as the cause of diseases classified elsewhere
CPT/HCPCS: 36415; 71045-TC-FY; 72193-TC; 80053; 81003; 83735; 84100; 84703; 85025; 85027; 85610; 85730; 86850; 86900; 86901; 87070; 87076; 87077; 87086; 87205; 93005; 93010; 94760; 99283-25; J0131

== ENCOUNTER 2024-03-25 21:32 | Emergency (ER) | payer BC ==
[2024-03-25 21:45] VITALS: TEMP 98.6; BMI 28.3
[2024-03-25] MEDS ORDERED: ACETAMINOPHEN INJECTION 100 ML ONE (23:24)
[2024-03-25] MEDS: ACETAMINOPHEN 1000 MG/100 ML BAG IVPB ONE (23:35)
[2024-03-25 23:38] LABS: BASO % 0.4 % (0-2.0); EOS % 0.3 % (0-4.5); HEMATOCRIT 38.5 % (32.4-45.2); LYMPH % 23.2 % (8-40); MCH 28.6 pg (25.7-33.7); MCHC 33.8 g/dl (32.0-36.0); MEAN CELL VOLUME 84.6 fl (80-96); MEAN PLT VOLUME 9.2 fl (7.5-11.1); MONO % 4.9 % (3.8-10.2); NEUT % 71.2 % (42.8-82.8); PLATELET COUNT 241 10^3/uL (134-434); RBC 4.56 M/mm3 (3.60-5.2); RDW 12.5 % (11.6-15.6); WHITE BLOOD COUNT 9.5 K/mm3 (4.0-10.0)
[2024-03-26 00:06] LABS: ALBUMIN 3.8 g/dl (3.4-5.0); CALCIUM 9.3 mg/dL (8.5-10.1)
[2024-03-26 00:07] LABS: BLOOD UREA NITROGEN 11.6 mg/dL (7-18)
[2024-03-26 00:09] LABS: CREATININE 0.6 mg/dL (0.55-1.3)
[2024-03-26 00:11] LABS: BILIRUBIN,TOTAL 0.6 mg/dL (0.2-1); TOT PROT 7.1 g/dl (6.4-8.2)
[2024-03-26 00:33] VITALS: BP 115/77; PULSE 77; RESP 16
== END 2024-03-26 00:33 | disposition home or self-care (01) ==
LOC: JER 21:32
DX: R07.89 Other chest pain (principal); R00.2 Palpitations; Z20.822 Contact with and (suspected) exposure to COVID-19
CPT/HCPCS: 0241U-QW; 36415; 71046-TC-FY; 80053; 84439; 84443; 84484; 84703; 85025; 93005; 93010; 99285-25